=== PATIENT | male | born 1995 | race Caucasian/White ===

== ENCOUNTER 2018-03-10 02:35 | Emergency (ER) | payer BC, OTHER ==
[2018-03-10 02:48] VITALS: BP 143/92; PULSE 109; RESP 18; TEMP 98.5
--- NOTE | 2018-03-10 03:10 | ED ---
Recheck HPI - General Chief Complaint: Recheck/Abnormal Lab/Rx Stated Complaint: mental health Source: patient Mode of arrival: ambulatory Limitations: no limitations - History of Present Illness Initial Comments: 22-year-old male with past medical history of attention deficit disorder presenting today for chief complaint of addiction to adderral. Pt states these previous prescribed Adderall for his attention deficit disorder by his primary provider. Patient states after his transition from pediatric care he had not obtain a primary provider and began buying Adderall off the street. Patient states that he is now taking up to 60 mg a day. He took Adderall today with last dose being at 8pm. States today after coming down from the lateral he felt markedly drained, he states he has not slept for longer than a few hours in the past 3 days. He also states that adderall also makes him agitated. Patient states that he he would like resources to get help for his addiction. Patient denies any alcohol or other drug abuse. Patient denies IV drug use. Patient denies a suicidal homicidal ideation or thoughts. On arrival patient's heart rate elevated. Patient denies any chest pain, shortness of breath, dyspnea on exertion. Pt appears well. Remainder of ROS (-), Patient denies any recent fever, chills, shortness of breath, chest pain, back pain, abdominal pain , nausea or vomiting, numbness or tingling, dysuria or hematuria, constipation or diarrhea, headaches or visual changes, or any other complaints. - Related Data Allergies Allergy/AdvReac Type Severity Reaction Status Date / Time No Known Allergies Allergy Verified 03/10/18 02:48 Review of Systems ROS Statement: Those systems with pertinent positive or pertinent negative responses have been documented in the HPI. ROS Other: All systems not noted in ROS Statement are negative. Constitutional: Denies: fever, chills Eyes: Denies: eye pain ENT: Denies: ear pain, throat pain Respiratory: Denies: cough, dyspnea, wheezes, hemoptysis, stridor Cardiovascular: Denies: chest pain, palpitations, dyspnea on exertion Endocrine: Denies: fatigue Gastrointestinal: Denies: abdominal pain, nausea, vomiting, diarrhea, constipation Genitourinary: Denies: urgency, dysuria, frequency, hematuria Musculoskeletal: Denies: back pain Skin: Denies: rash Neurological: Denies: headache, weakness, numbness, paresthesias, confusion Past Medical History Past Medical History: No Reported History History of Any Multi-Drug Resistant Organisms: MRSA Date of last positivie culture/infection: 2011 MDRO Source:: right knee Past Surgical History: No Surgical Hx Reported Past Psychological History: ADD/ADHD Smoking Status: Current every day smoker Past Alcohol Use History: None Reported Past Drug Use History: None Reported General Exam - General Exam Comments Initial Comments: General: The patient is awake and alert, in no distress, and does not appear acutely ill. Eye: Pupils are equal, round and reactive to light, extra-ocular movements are intact. No nystagmus. There is normal conjunctiva bilaterally. No signs of icterus. Ears, nose, mouth and throat: There are moist mucous membranes and no oral lesions. Neck: The neck is supple, there is no tenderness or JVD. Cardiovascular: There is a elevated rate and normal rhythm. No murmur, rub or gallop is appreciated. Respiratory: Lungs are clear to auscultation, respirations are non-labored, breath sounds are equal. No wheezes, stridor, rales, or rhonchi. Gastrointestinal: Soft, non-distended, non-tender abdomen without masses or organomegaly noted. There is no rebound or guarding present. No CVA tenderness. Bowel sounds are unremarkable. Musculoskeletal: Normal ROM, no tenderness. Strength 5/5. Sensation intact. Pulses equal bilaterally 2+. Neurological: A&O x 3. CN II-XII intact, There are no obvious motor or sensory deficits. Coordination appears grossly intact. Speech is normal. Skin: Skin is warm and dry and no rashes or lesions are noted. Psychiatric: Cooperative, appropriate mood & affect, normal judgment. Limitations: no limitations Course Vital Signs 03/10/18 02:42 Temperature 98.5 F Pulse Rate 109 H Respiratory 18 Rate Blood Pressure 143/92 O2 Sat by Pulse 100 Oximetry Medical Decision Making - Medical Decision Making Patient denies any suicidal or homicidal ideations. Patient states he would like addiction resources and discharge home. At this time feel patient is not a harm to himself or others. Review of systems is negative. Patient HR elevated however this is consistent with taking amphetamine at [address] Pittman at this time we feel patient is stable for discharge with primary care follow-up. Return parameters were discussed at length the patient who verbalized understanding. Patient is agreeable discharge stating he is ready to go home. Patient discharged in stable condition Disposition Clinical Impression: Amphetamine abuse Disposition: HOME SELF-CARE Condition: Good Instructions: Polysubstance Abuse (ED) Additional Instructions: Please follow-up with family doctor in the next 24 hours, please seek one of the recommended rehabilitation facilities as discussed for evaluation and treatment of adderall addiction. Please return to emergency room if the symptoms increase or worsen or for any other concerns, such as chest pain or shortness of breath. Is patient prescribed a controlled substance at d/c from ED?: No Referrals: None,Stated [Primary Care Provider] - 1-2 days Time of Disposition: 03:10
== END 2018-03-10 03:18 | disposition home or self-care (01) ==
LOC: EC 02:35
DX: F15.10 Other stimulant abuse, uncomplicated (principal); F90.9 Attention-deficit hyperactivity disorder, unspecified type; R00.9 Unspecified abnormalities of heart beat; F17.200 Nicotine dependence, unspecified, uncomplicated; Z79.899 Other long term (current) drug therapy
CPT/HCPCS: 99283

== ENCOUNTER 2018-05-01 08:22 | Emergency (ER) | payer BC, OTHER ==
[2018-05-01 08:29] VITALS: BP 157/92; PULSE 120; RESP 18; TEMP 97.7
== END 2018-05-01 08:47 | disposition left against medical advice (07) ==
LOC: EC 08:22
DX: T33.522A Superficial frostbite of left hand, initial encounter (principal)
CPT/HCPCS: 99499

== ENCOUNTER 2018-05-01 10:02 | Emergency (ER) | payer BC, OTHER ==
[2018-05-01 10:07] VITALS: RESP 18; TEMP 97.4
--- NOTE | 2018-05-01 10:33 | ED ---
General Adult HPI - General Chief complaint: Psychiatric Symptoms Stated complaint: EPS eval Time Seen by Provider: 05/01/18 10:22 Source: patient, RN notes reviewed Mode of arrival: ambulatory Limitations: no limitations - History of Present Illness Initial comments: Patient is a pleasant 23-year-old male presenting to the emergency Department with depression. There was question if patient was suicidal however patient denies this. Patient originally answers no to any hallucinations however states there may have been some minor incidences but nothing severe. Patient does not want to expand on this. Patient denies any homicidal thoughts. Patient is concerned regarding some area on his left hand that he thinks could be related to frostbite. Patient states he was exposed to some cold. Patient states this occurred 2 days ago. - Related Data Home Medications Medication Instructions Recorded Confirmed Lisdexamfetamine Dimesylate 40 mg PO DAILY 05/01/18 05/01/18 [Vyvanse] Allergies Allergy/AdvReac Type Severity Reaction Status Date / Time No Known Allergies Allergy Verified 05/01/18 10:07 Review of Systems ROS Statement: Those systems with pertinent positive or pertinent negative responses have been documented in the HPI. ROS Other: All systems not noted in ROS Statement are negative. Constitutional: Denies: fever Eyes: Denies: eye pain ENT: Denies: ear pain Respiratory: Denies: cough Cardiovascular: Denies: chest pain Endocrine: Denies: fatigue Gastrointestinal: Denies: abdominal pain Genitourinary: Denies: dysuria Skin: Reports: as per HPI Neurological: Denies: weakness Psychiatric: Reports: depression Past Medical History Past Medical History: No Reported History History of Any Multi-Drug Resistant Organisms: MRSA Date of last positivie culture/infection: 2011 MDRO Source:: right knee Past Surgical History: No Surgical Hx Reported Past Psychological History: ADD/ADHD Smoking Status: Current every day smoker Past Alcohol Use History: None Reported Past Drug Use History: None Reported General Exam Limitations: no limitations General appearance: alert, in no apparent distress Head exam: Present: atraumatic Eye exam: Present: normal appearance Neck exam: Present: normal inspection Respiratory exam: Present: normal lung sounds bilaterally Cardiovascular Exam: Present: regular rate, normal rhythm GI/Abdominal exam: Present: soft. Absent: tenderness Extremities exam: Present: full ROM. Absent: tenderness Neurological exam: Present: alert Psychiatric exam: Present: anxious Skin exam: Present: other (left palmWith 4-5 small areas of callus-type formation. 3 areas are the palmar MCP and 2 are more proximal, could represent a small amount of rizvi nip or callus. ) Course Vital Signs 05/01/18 10:05 Temperature 97.4 F L Pulse Rate 129 H Respiratory 18 Rate Blood Pressure 153/87 O2 Sat by Pulse 96 Oximetry - Reevaluation(s) Reevaluation #1: 05/01/18 10:33 Patient is advised he will need wound care for the left palm. Medical Decision Making - Medical Decision Making Patient was seen by mental health services. Patient no longer suicidal and does contract for safety. They recommend discharge. - Lab Data Lab Results 05/01/18 Range/Units 10:41 Urine Opiates Screen Not Detected (NotDetected) Ur Oxycodone Screen Not Detected (NotDetected) Urine Methadone Screen Not Detected (NotDetected) Ur Propoxyphene Screen Not Detected (NotDetected) Ur Barbiturates Screen Not Detected (NotDetected) U Tricyclic Antidepress Not Detected (NotDetected) Ur Phencyclidine Scrn Not Detected (NotDetected) Ur Amphetamines Screen Detected H (NotDetected) U Methamphetamines Scrn Not Detected (NotDetected) U Benzodiazepines Scrn Not Detected (NotDetected) Urine Cocaine Screen Not Detected (NotDetected) U Marijuana (THC) Screen Not Detected (NotDetected) Disposition Clinical Impression: Depression Disposition: HOME SELF-CARE Condition: Stable Instructions (If sedation given, give patient instructions): Depression (ED), Polysubstance Abuse (ED) Additional Instructions: Please follow-up with primary care physician in the next day or 2 for recheck. Do not use medications not prescribed to. Return for increased depression, thoughts of self-harm, worsening symptoms or other concerns. Is patient prescribed a controlled substance at d/c from ED?: No Referrals: Claude Freire MD [Primary Care Provider] - 1-2 days Time of Disposition: 13:14
[2018-05-01 11:05] LABS: Amphetamine Screen,Urine Detected (NotDetected); Barbiturate Screen,Urine Not Detected (NotDetected); Benzodiazepines Screen,Urine Not Detected (NotDetected); Cocaine Screen,Urine Not Detected (NotDetected); Methadone Screen, Urine Not Detected (NotDetected); Opiate Screen,Urine Not Detected (NotDetected); Oxycodone Screen, Urine Not Detected (NotDetected); Phencyclidine Screen,Urine Not Detected (NotDetected); Tricyclic Antidepressant,Urine Not Detected (NotDetected); Urn Cannabinoid Scrn Not Detected (NotDetected)
[2018-05-01] MEDS ORDERED: LORazepam 1 MG TAB PO STA (13:24)
[2018-05-01 14:13] VITALS: BP 119/68; PULSE 110
== END 2018-05-01 14:13 | disposition home or self-care (01) ==
LOC: EC 10:02
DX: F32.9 Major depressive disorder, single episode, unspecified (principal); F17.200 Nicotine dependence, unspecified, uncomplicated; Z86.14 Personal history of Methicillin resistant Staphylococcus aureus infection; Z79.899 Other long term (current) drug therapy
CPT/HCPCS: 80306; 99284

== ENCOUNTER 2018-07-04 10:06 | Inpatient (IN) | payer BC, MEDICAID ==
--- NOTE | 2018-07-04 10:47 | ED ---
General Adult HPI - General Chief complaint: Psychiatric Symptoms Stated complaint: Mental Health Time Seen by Provider: 07/04/18 10:18 Source: patient, police, RN notes reviewed, old records reviewed Mode of arrival: ambulatory Limitations: no limitations - History of Present Illness Initial comments: 23 -year-old male presenting for psychiatric evaluation. Patient is petitioned both by local police and by his mother. According to police he has made suicidal comments and has been threatening to harm himself. There was some issues related to face broke. Patient himself denies suicidal ideation at the time my evaluation. He denies any self-harm or ingestion. He has no chronic medical problems. He states that 2 days ago police did take away his medication. - Related Data Home Medications Medication Instructions Recorded Confirmed Lisdexamfetamine Dimesylate 40 mg PO DAILY 05/01/18 07/04/18 [Vyvanse] Allergies Allergy/AdvReac Type Severity Reaction Status Date / Time No Known Allergies Allergy Verified 07/04/18 10:23 Review of Systems ROS Statement: Those systems with pertinent positive or pertinent negative responses have been documented in the HPI. ROS Other: All systems not noted in ROS Statement are negative. Past Medical History Past Medical History: No Reported History History of Any Multi-Drug Resistant Organisms: MRSA Date of last positivie culture/infection: 2011 MDRO Source:: right knee Past Surgical History: No Surgical Hx Reported Past Psychological History: ADD/ADHD Smoking Status: Current every day smoker Past Alcohol Use History: None Reported Past Drug Use History: None Reported General Exam Limitations: no limitations General appearance: alert, in no apparent distress Head exam: Present: atraumatic, normocephalic Eye exam: Present: normal appearance, PERRL ENT exam: Present: normal exam Neck exam: Present: normal inspection. Absent: tenderness, meningismus Respiratory exam: Present: normal lung sounds bilaterally. Absent: respiratory distress, wheezes Cardiovascular Exam: Present: regular rate, normal rhythm GI/Abdominal exam: Present: soft. Absent: distended, tenderness Extremities exam: Present: normal inspection, normal capillary refill Neurological exam: Present: alert, CN II-XII intact. Absent: motor sensory d eficit Psychiatric exam: Present: flat affect. Absent: homicidal ideation, suicidal ideation Skin exam: Present: warm, dry, intact. Absent: cyanosis, diaphoretic Course Vital Signs 07/04/18 07/04/18 07/04/18 10:10 12:22 15:00 Temperature 98 F Pulse Rate 89 Respiratory 20 16 16 Rate Blood Pressure 131/81 O2 Sat by Pulse 97 Oximetry Medical Decision Making - Medical Decision Making 23-year-old male brought in under quite a petition for psychiatric evaluation. Patient is medically cleared in the emergency department. He is evaluated by EPS, will be admitted to this institution for further psychiatric evaluation and treatment. I completed a clinical certification on this patient. - Lab Data Lab Results 07/04/18 Range/Units 11:16 Urine Opiates Screen Not Detected (NotDetected) Ur Oxycodone Screen Not Detected (NotDetected) Urine Methadone Screen Not Detected (NotDetected) Ur Propoxyphene Screen Not Detected (NotDetected) Ur Barbiturates Screen Not Detected (NotDetected) U Tricyclic Antidepress Not Detected (NotDetected) Ur Phencyclidine Scrn Not Detected (NotDetected) Ur Amphetamines Screen Detected H (NotDetected) U Methamphetamines Scrn Not Detected (NotDetected) U Benzodiazepines Scrn Not Detected (NotDetected) Urine Cocaine Screen Not Detected (NotDetected) U Marijuana (THC) Screen Not Detected (NotDetected) Disposition Clinical Impression: Depression, Suicidal ideation Disposition: ADMITTED IP TO THIS [facility] Condition: Stable Is patient prescribed a controlled substance at d/c from ED?: No Referrals: Claude Freire MD [Primary Care Provider] - 1-2 days Time of Disposition: 15:15 Decision to Admit Reason: Admit from EC Decision Date: 07/04/18 Decision Time: 15:15
[2018-07-04 11:30] LABS: Amphetamine Screen,Urine Detected (NotDetected); Barbiturate Screen,Urine Not Detected (NotDetected); Benzodiazepines Screen,Urine Not Detected (NotDetected); Cocaine Screen,Urine Not Detected (NotDetected); Methadone Screen, Urine Not Detected (NotDetected); Opiate Screen,Urine Not Detected (NotDetected); Oxycodone Screen, Urine Not Detected (NotDetected); Phencyclidine Screen,Urine Not Detected (NotDetected); Tricyclic Antidepressant,Urine Not Detected (NotDetected); Urn Cannabinoid Scrn Not Detected (NotDetected)
[2018-07-04] MEDS ORDERED: NICOTINE 21MG/24HR PATCH TRANSDERM STA (15:11)
[2018-07-04] MEDS ORDERED: MAG HYDROX/AL HYDROX/SIMETH 30 ML CUP PO PRN (20:56)
[2018-07-04] MEDS ORDERED: ACETAMINOPHEN TAB 325 MG TAB PO PRN (20:56)
[2018-07-04] MEDS ORDERED: MAGNESIUM HYDROXIDE 2,400 MG/10 ML CUP PO PRN (20:56)
[2018-07-04] MEDS ORDERED: LORazepam 1 MG TAB PO SCH (21:00)
[2018-07-05] MEDS: NICOTINE 21MG/24HR PATCH TRANSDERM SCH (10:11)
--- NOTE | 2018-07-05 10:17 | HP ---
HISTORY AND PHYSICAL DATE OF SERVICE DICTATION: 07/05/2018 IDENTIFYING DATA: This patient is a 23-year-old single male who was admitted to the mental health unit with concerns he was having suicidal ideation. HISTORY OF PRESENT ILLNESS: The patient presented with a petition completed by his grandmother stating "He would be better off ." He hurt his family. He is no good. We would be better off without him. He thinks everyone thinks he is a bad person, made too many mistakes in life." The patient states that he is here on a misunderstanding. He reports the prior day he had a meltdown. He was in [place] and had a flat tire and was struggling with getting that repaired. He had made a call to his mother and had vented his frustration. After his tire was repaired, he tried to go back home. Apparently, his mother changed the locks. He went to his grandmother's home. He states that the police picked him up in the morning and brought him to the hospital for evaluation. He indicates his mood is good. He reports his sleep is stable at 8 hours. Appetite is stable. Energy level stable. He endorses no tearfulness or crying spells. Throughout the session, he was trying to minimize the presenting symptoms. He indicates that he has been taking a stimulant for years for ADHD that was diagnosed at age 14 and he has been off of his Vyvanse for approximately 5 days. However, it was still in his urine drug screen. In reviewing the emergency room record, he has been in the ER twice before and in this past March he presented stating he had an Adderall addiction and wanted help in terms of coming off of Adderall. He presented again at the end of this past April stating he had depression but not suicidal and he was not admitted. We reviewed these episodes and again he minimizes their importance. He reports no significant anxiety symptoms. He does state that he is stressed. However, he feels that he has to provide too much support for his mother, grandmother, girlfriend and brother. He reports no history of hypomanic or manic episodes. He reports no auditory or visual hallucinations or any specific delusions. He states there are no firearms at home, where he resides. PAST PSYCHIATRIC HISTORY: One prior psychiatric admission 6 years ago at [facility]. No history of suicide attempts. He did work with a gentleman named Stevenson at [employer] approximately 1-2 months ago, but he discontinued that activity. He did state that was beneficial. He has been on Adderall that he bought off the street in the past and was prescribed Vyvanse 40 mg by his primary care physician. PAST MEDICAL HISTORY: None reported. ALLERGIES: No known drug allergies. CHEMICAL DEPENDENCY HISTORY: He reports no use of alcohol, marijuana, or illicit drugs. He has never been placed in residential treatment for chemical dependency reasons. FAMILY PSYCHIATRIC HISTORY: His mother is known to have depression. He is unaware if she is on a medication. There are no suicides in the family. FAMILY CHEMICAL DEPENDENCY HISTORY: His mother is known to abuse alcohol. SOCIAL HISTORY: The patient is 23 years old. He is single. He has no children. He resides with his mother and grandmother. He has a brother. He is self-employed as a maintenance specialist. He graduated high school and went to the [employer] locally for short period time with no degree earned. No history of service. He is originally from the [facility]. He was primarily raised by his mother. His father was not in his life. LEGAL HISTORY: He states he was charged with firearms possession and controlled substance possession as a deportation examiner. He served the day treatment night watch sentence successfully. He reports no legal charges as an adult. ABUSE HISTORY: None reported. MENTAL STATUS EXAM: The patient is a thin male, appearing his stated age. He wears a garcia. He is dressed in his own clothing. Hygiene is adequate. He has a disheveled appearance. He yawns throughout the session, indicating he is tired. He reports his mood is good. He has a constricted affect. He reports no suicidal or homicidal ideation, intent, or plan. He reports no auditory or visual hallucinations or any specific delusions. There is no observed evidence of psychosis. Thought process is linear. He demonstrates no tangential thinking, loose associations or flight of ideas. He does not appear hypomanic or manic. He demonstrates no verbal or physical aggressiveness. No involuntary repetitive movements. Insight and judgment grossly intact at this time. He is oriented to person, place, and date. He is able to name the days of the week backwards. STRENGTHS: Housing, willingness to be evaluated voluntarily. WEAKNESSES: Psychosocial stressors, unemployment. INTELLECT: Average. IMPRESSION: Depression, unspecified, rule out major depressive disorder, rule out stimulant use disorder. PLAN: The patient has been admitted to the mental health unit. He is asking to sign in voluntarily. He endorses no symptoms meeting criteria for major depressive disorder and anxiety disorder,. etc. He does; however, continue to present to the hospital for help. We discussed the need to evaluate him further. He is instructed to attend groups. He indicates that his grandmother and girlfriend would be the best people to participate in his support meeting and Social Work can arrange this. We will not continue the Vyvanse. He states that it is not necessary, he no longer wants to take it. He does not feel that he needs to participate in inpatient chemical dependency treatment. He will be seen by Internal Medicine for routine history and physical exam. We will involve family in treatment and discharge planning as he will allow. At this time, he has indicated he does not need a psychotropic medication. We will not force the issue. We will continue to assess him for safety. MMODL / IJN: [id number] /
[2018-07-05 11:15] LABS: Basophils # (A) 0.1 k/uL (0-0.2); Basophils % (A) 1 %; Eosinophils # (A) 0.2 k/uL (0-0.7); Eosinophils % (A) 2 %; HCT 49.5 % (39.0-53.0); HGB 17.3 gm/dL (13.0-17.5); Lymphocytes # (A) 1.8 k/uL (1.0-4.8); Lymphocytes % (A) 28 %; MCH 31.6 pg (25.0-35.0); MCHC 34.9 g/dL (31.0-37.0); MCV 90.7 fL (80.0-100.0); Mean Platelet Volume 8.5; Monocytes # (A) 0.4 k/uL (0-1.0); Monocytes % (A) 7 %; Neutrophils # (A) 3.8 k/uL (1.3-7.7); Neutrophils % (A) 60 %; Platelet Count 205 k/uL (150-450); RBC 5.46 m/uL (4.30-5.90); RDW 14.2 % (11.5-15.5); WBC 6.3 k/uL (3.8-10.6)
[2018-07-05 11:30] LABS: ALT 20 U/L (21-72); AST 22 U/L (17-59); Albumin 4.5 g/dL (3.5-5.0); Alkaline Phosphatase 65 U/L (38-126); Anion Gap 8 mmol/L; Blood Urea Nitrogen 17 mg/dL (9-20); Carbon Dioxide 33 mmol/L (22-30); Chloride 101 mmol/L (98-107); Cholesterol 181 mg/dL (<200); Glucose 71 mg/dL (74-99); HDL Cholesterol 37 mg/dL (40-60); LDL Cholesterol,Calculated 83 mg/dL (0-99); Potassium 4.6 mmol/L (3.5-5.1); Sodium 142 mmol/L (137-145); Total Bilirubin 0.6 mg/dL (0.2-1.3); Total Protein 7.4 g/dL (6.3-8.2); Triglycerides 307 mg/dL (<150)
[2018-07-05 11:55] VITALS: BMI 25.8
[2018-07-05 21:22] LABS: Hemoglobin A1C 5.5 % (4.0-6.0)
[2018-07-05] MEDS: LORazepam 1 MG TAB PO PRN (21:30)
--- NOTE | 2018-07-05 21:32 | P.MDCNMH ---
History of Present Illness H&P Date: 07/05/18 Chief Complaint: Suicidal comments. Petitioned by his mother Patient is a 23-year-old male with a known history of ADD/ADHD, nicotine addiction brought to the hospital for psychiatric evaluation. Petitioned is petitioned by his mother and was brought to the hospital by police. Aberrantly patient has made suicidal comments and has been threatening to harm himself. Patient says that there is some misunderstanding between his mother and him. Currently denied any suicidal ideation. Denied any recent illnesses. Denied history of any other medical problems. Patient has not been taking any of his medications recently for the past 2-3 days. No chest pain or shortness breath. No fever no chills. Review of Systems Constitutional: Patient denies any fever or chills . No generalized weakness or weight loss. Abdomen: Patient denied nausea vomiting and diarrhea and abdominal pain. Cardiovascular: Patient denies any chest pain or short of breath no palpitations. Respiratory: patient denied any cough is from production. No shortness of breath Neurologic: Patient denied any numbness or tingling headache. Musculoskeletal: Patient denies any complaints of joint swelling or deformity. Skin: Negative Psychiatric: Negative Endocrine: No heat or cold intolerance. No recent weight gain. Genitourinary: No dysuria or hematuria. All other 14 point ROS negative except the above Past Medical History Past Medical History: No Reported History History of Any Multi-Drug Resistant Organisms: MRSA Date of last positivie culture/infection: 2011 MDRO Source:: right knee Past Surgical History: No Surgical Hx Reported Past Psychological History: ADD/ADHD Smoking Status: Current every day smoker Past Alcohol Use History: None Reported Past Drug Use History: None Reported Medications and Allergies Home Medications Medication Instructions Recorded Confirmed Type Lisdexamfetamine Dimesylate 40 mg PO DAILY 05/01/18 07/04/18 History [Sheela] Allergies Allergy/AdvReac Type Severity Reaction Status Date / Time No Known Allergies Allergy Verified 07/05/18 11:56 Physical Exam Vitals: Vital Signs Temp Pulse Resp BP 07/05/18 12:24 114 H 20 123/66 07/05/18 05:52 97.7 F 124 H 16 126/75 PHYSICAL EXAMINATION: Patient is lying in the bed comfortably, no acute distress, awake alert and oriented.. HEENT: Normocephalic. Neck is supple. Pupils reactive. Nostrils clear. Oral cavity is moist. Ears reveal no drainage. Neck reveals no JVD, carotid bruits, or thyromegaly. CHEST EXAMINATION: Trachea is central. Symmetrical expansion. Lung faulkner clear to auscultation and percussion. CARDIAC: Normal S1, S2 with no gallops. No murmurs ABDOMEN: Soft. Bowel sounds normal. No organomegaly. No abdominal bruits. Extremities: reveal no edema. No clubbing or cyanosis Neurologically awake, alert, oriented x3 with well-coordinated movements. No focal deficits noted Skin: No rash or skin lesions. Psychiatric: Coperative. Nonsuicidal Musculoskeletal: No joint swelling or deformity. Normal range of motion. Cranial Nerve Examination - Cranial Nerves Cranial Nerve I- Olfactory: Intact Cranial Nerve II- Optic: Intact Cranial Nerve III- Oculomotor: Intact Cranial Nerve IV- Trochlear: Intact Cranial Nerve V- Trigeminal: Intact Cranial Nerve - Abducens: Intact Cranial Nerve VII- Facial: Intact Cranial Nerve VIII- Auditory: Intact Cranial Nerve IX- Glossopharyngeal: Intact Cranial Nerve X- Vagus: Intact Cranial Nerve XI- Accessory: Intact Cranial Nerve XII- Hypoglossal: Intact Results CBC & Chem 7: 07/05/18 10:58 07/05/18 10:58 Labs: Abnormal Lab Results - Last 24 Hours (Table) 07/05/18 Range/Units 10:58 Carbon Dioxide 33 H (22-30) mmol/L Glucose 71 L (74-99) mg/dL ALT 20 L (21-72) U/L Triglycerides 307 H (<150) mg/dL HDL Cholesterol 37 L (40-60) mg/dL Assessment and Plan Assessment: Suicidal ideation/comments. petitioned by his mother. ADD/ADHD Nicotine addiction Hypertriglyceridemia with TG level 307 Plan: Patient be continued on current psychiatric management. Dietary modifications discussed with the patient. Counseled for smoking cessation. Otherwise continue the current management and further recommendations based on the clinical course. Thank you for your consult. Time with Patient: Greater than 30
[2018-07-05 21:33] VITALS: RESP 16
[2018-07-06] MEDS: NICOTINE 21MG/24HR PATCH TRANSDERM SCH (10:24)
--- NOTE | 2018-07-06 11:37 | P.PN ---
Progress Note - Text Interval history: The patient is found in the hallway he follows me to an interview room. He indicates his mood is good. He reports he participated in a support meeting involving his girlfriend and that went well. I have to touch base with social work to get their impression. He states he has no suicidal thoughts. He is not feeling sad no particular anxiety. He states he's been eating well he was able to sleep last night. He has been attending groups. Mental status exam: The patient is alert he presents with adequate hygiene grooming eye contact is appropriate. He is dressed in his own clothing. He seated calmly. He reports having no suicidal or homicidal ideation intent or plan. He is reporting no auditory or visual hallucinations or any specific delusions. There is no observed evidence of psychosis. He demonstrates no tangential thinking loose associations or flight of ideas. He does not appear hypomanic or manic. He demonstrates no verbal or physical aggressiveness. Affect is bright and appropriately expressive. Insight and judgment grossly intact. Plan: The patient will be monitored for safety. I will confer with social work regarding the recent family meeting. We will need to confirm that he can reside with his grandmother. He does not feel he needs a medication for depressive or anxiety symptoms. He is willing to follow up with his therapist as an outpatient. We will consider discharging him tomorrow if clinically stable. Vital signs reviewed.
[2018-07-06] MEDS: LORazepam 1 MG TAB PO PRN (21:41)
[2018-07-07 00:06] VITALS: BP 131/63; PULSE 96; TEMP 97.7
--- NOTE | 2018-07-07 09:59 | P.DS ---
Providers Date of admission: 07/04/18 15:23 Expected date of discharge: 07/07/18 Attending physician: Octavio Degroot Consults: 07/04/18 20:56 Consult Physician Routine Consulting Provider: Camilo Florian Consult Reason/Comments: medical management Do you want consulting provider notified?: Yes, Notify in am Primary care physician: Claude Freire - Discharge Diagnosis(es) (1) Depression Current Visit: Yes Status: Acute Hospital Course: Brief summary admission note: This patient is a 23-year-old single male was admitted to the mental health unit with concerns she was having suicidal ideation. The patient was petition by his grandmother. The patient made some statements to his family that were concerning upon presentation here he states there was a misunderstanding. He reported having a meltdown the previous day he states that social stressors had been accumulating over the last 6 months and were overwhelming. At the time I saw him reported his mood was good he didn't feel that he met criteria for depressive episodes he had no suicidal thoughts he reported stressors but not any true anxiety disorder. He had been treated for ADHD in the past. He had been using Vyvanse regularly up until just prior to this admission. For full details please refer to the psychiatric evaluation dated 07/05/2018. Summary of hospital course: The patient was admitted to the mental health unit voluntarily. We reviewed his presenting symptoms and treatment options. He was seen by internal medicine for routine history and physical exam social media community manager met with the patient to complete a psychosocial assessment and begin discharge planning. After speaking with him he did not meet criteria for major depressive disorder but seemed to be reacting to stressors in his life. 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 During the course of his stay he reported no suicidal thoughts he did participate in a support meeting involving his girlfriend his grandmother visited last evening. He plans to reside with his grandmother and we'll allow social work to speak with her. Mental status exam: The patient is alert he is dressed in hospital gowns he has adequate hygiene grooming eye contact is appropriate. He is pleasant and cooperative. He has spontaneous speech that is fluent nonpressured. He reports no suicidal ideation intent or plan and no homicidal ideation intent or plan. He reports he does not feel hopeless. He endorses no auditory or visual hallucinations or any specific delusions. There is no observed evidence of psychosis. He demonstrates no tangential thinking loose associations or flight of ideas. He does not appear hypomanic or manic. He demonstrates no verbal or physical aggressiveness. He is oriented to person place and date. He spontaneously describes future oriented thinking. Impressions 1. Depression unspecified rule out stimulant use disorder Plan: The patient will be discharged mental health unit today he will reside with his grandmother. He will continue following up with his established therapist social work will confirm his next appointment. He did not require any psychotropic medication at this time he plans on abstaining from the Vyvanse and any other stimulant. There is no imminent safety risk he is appropriate for transition back to outpatient care. He is instructed to present to the hospital any acute safety concerns. We spent some time discussing suggestions for cognitive reframing for setting limits and developing coping skills Patient Condition at Discharge: Stable Plan - Discharge Summary Discharge Rx Participant: No New Discharge Prescriptions: New Nicotine 21Mg/24Hr Patch [Habitrol] 1 patch TRANSDERM DAILY #14 patch Discontinued Lisdexamfetamine Dimesylate [Vyvanse] 40 mg PO DAILY Discharge Medication List Nicotine 21Mg/24Hr Patch [Habitrol] 1 patch TRANSDERM DAILY #14 patch 07/07/18 [Rx] Follow up Appointment(s)/Referral(s): Eri Khan [Outside] - 1 Week ([place] ) Claude Freire MD [Primary Care Provider] - 1-2 days
[2018-07-07] MEDS: NICOTINE 21MG/24HR PATCH TRANSDERM SCH (10:10)
== END 2018-07-07 13:11 | disposition home or self-care (01) | DRG 881 ==
LOC: EC 10:06 → 3MHU 15:23
PROVIDERS: ADMIT Psychiatry & Neurology Psychiatry; ATTEND Psychiatry & Neurology Psychiatry
DX: F32.9 Major depressive disorder, single episode, unspecified (principal); R45.851 Suicidal ideations; F90.9 Attention-deficit hyperactivity disorder, unspecified type; E78.1 Pure hyperglyceridemia; F17.210 Nicotine dependence, cigarettes, uncomplicated; Z71.6 Tobacco abuse counseling; Z79.899 Other long term (current) drug therapy; Z71.3 Dietary counseling and surveillance; Z56.0 Unemployment, unspecified; Z86.14 Personal history of Methicillin resistant Staphylococcus aureus infection; Z81.8 Family history of other mental and behavioral disorders
CPT/HCPCS: 80053; 80061; 80306; 83036; 84443; 85025; 99285

== ENCOUNTER 2019-02-03 15:57 | Emergency (ER) | payer OTHER, BC ==
[2019-02-03 16:34] VITALS: TEMP 98
--- NOTE | 2019-02-03 17:29 | XR ---
EXAMINATION TYPE: XR chest 2V DATE OF EXAM: 02/03/2019 COMPARISON: NONE HISTORY: Pain TECHNIQUE: Frontal and lateral views of the chest are obtained. FINDINGS: Heart and mediastinum are normal. Lungs are clear. Diaphragm is normal. Bony thorax appear s normal. IMPRESSION: Normal chest.
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
[2019-02-03 17:58] VITALS: BP 136/82; PULSE 80; RESP 16
== END 2019-02-03 17:53 | disposition home or self-care (01) ==
LOC: EC 15:57
DX: R51 Headache (principal); F17.200 Nicotine dependence, unspecified, uncomplicated; Z86.14 Personal history of Methicillin resistant Staphylococcus aureus infection; V48.5XXA Car driver injured in noncollision transport accident in traffic accident, initial encounter; Y93.89 Activity, other specified; Y92.410 Unspecified street and highway as the place of occurrence of the external cause
CPT/HCPCS: 70450; 71046; 72125; 99284

== ENCOUNTER 2019-08-12 03:42 | Emergency (ER) | payer BC, OTHER ==
[2019-08-12 03:49] VITALS: RESP 18
--- NOTE | 2019-08-12 04:33 | XR ---
EXAMINATION TYPE: XR hand complete LT DATE OF EXAM: 08/12/2019 COMPARISON: NONE HISTORY: Pain TECHNIQUE: 3 views FINDINGS: Metacarpals are intact. There is nondisplaced fracture of the tip of the tuft of the distal phalanx of the thumb. There is deformity of the base of the distal phalanx of the middle finger cons istent with old healed fracture. IMPRESSION: Acute nondisplaced tuft fracture of the thumb.
[2019-08-12] MEDS ORDERED: HYDROcodone/APAP 5-325MG 1 EACH TAB PO STA (04:44)
[2019-08-12] MEDS ORDERED: CEPHALEXIN 500MG STARTER PACK 4 CAP BTL PO STA (04:44)
--- NOTE | 2019-08-12 04:44 | ED ---
Upper Extremity HPI - General Chief Complaint: Extremity Injury, Upper Stated Complaint: Thumb Injury Source: patient Mode of arrival: ambulatory Limitations: physical limitation - History of Present Illness Initial Comments: This patient is a 22-year-old man presenting for left thumb injury. He states that approximately 2 days ago now he was moving a heavy speaker and his thumb took a direct blow between the speaker and the hard edge of a piece of furniture. Since that time he has had pain and swelling to the distal phalanx of the left thumb. No obvious deformity. No loss of motor or sensory function. Tetanus shot 6-7 years ago. He did have a small laceration to the pad of the left thumb but denies any symptoms of infection. Complaint: Injury to:: left, finger Onset/Timin -: days(s) Other Extremity Injury: Fingers: Left Other Injuries: none Handedness: right Place: home Severity scale (1-10): 8 Improves With: none Worsens With: movement of extremity Context: direct blow Associated Symptoms: denies other symptoms - Related Data Previous Rx's Medication Instructions Recorded Nicotine 21Mg/24Hr Patch [Habitrol] 1 patch TRANSDERM DAILY #14 patch 07/07/18 Cephalexin [Keflex] 500 mg PO Q6HR #28 cap 08/12/19 Hydrocodone/Acetaminophen [Snyder 1 each PO Q6HR PRN #20 tab 08/12/19 5-325] Allergies Allergy/AdvReac Type Severity Reaction Status Date / Time No Known Allergies Allergy Verified 08/12/19 03:49 Review of Systems ROS Statement: Those systems with pertinent positive or pertinent negative responses have been documented in the HPI. ROS Other: All systems not noted in ROS Statement are negative. Constitutional: Denies: fever, chills Musculoskeletal: Reports: arthralgia Hematological/Lymphatic: Denies: easy bleeding Past Medical History Past Medical History: No Reported History History of Any Multi-Drug Resistant Organisms: MRSA Date of last positivie culture/infection: 2011 MDRO Source:: right knee Past Surgical History: No Surgical Hx Reported Past Psychological History: ADD/ADHD Smoking Status: Current every day smoker Past Alcohol Use History: None Reported Past Drug Use History: None Reported General Exam Limitations: physical limitation General appearance: alert, in no apparent distress Left Forearm Wrist exam: Present: normal inspection, full ROM. Absent: tenderness, swelling Hand Wrist exam: Present: full ROM, tenderness, swelling, laceration, ecchymosis, subungual hematoma. Absent: abrasion, deformity, crepitus, dislocation, erythema, amputation, nail avulsion Vascular: Present: normal capillary refill Neurological exam: Absent: motor sensory deficit Skin exam: Present: warm, dry, intact, normal color. Absent: rash Course Vital Signs 08/12/19 03:46 Temperature 98.1 F Pulse Rate 118 H Respiratory 18 Rate Blood Pressure 136/94 O2 Sat by Pulse 100 Oximetry Medical Decision Making - Medical Decision Making Patient is 24-year-old man with nondisplaced tuft fracture as well as subungual hematoma of the left thumb. Patient will be given antibiotic and analgesic as well as follow-up with orthopedics. Also discussed further care of tuft fracture. Patient tetanus shot up-to-date. Disposition Clinical Impression: Fracture of phalanx of finger, Subungual hematoma of finger of left hand Narrative: Initial visit for a nondisplaced tuft fracture of the left first digit area Disposition: HOME SELF-CARE Condition: Good Instructions (If sedation given, give patient instructions): Finger Fracture (ED) Prescriptions: Cephalexin [Keflex] 500 mg PO Q6HR #28 cap Hydrocodone/Acetaminophen [Snyder 5-325] 1 each PO Q6HR PRN #20 tab PRN Reason: Pain Is patient prescribed a controlled substance at d/c from ED?: Yes When asked, does pt state using other controlled substances?: No If prescribed controlled substance>3 days was MAPS reviewed?: Prescribed <3 Days If opioid is for acute pain is fill amount 7 days or less?: Yes If Rx opioid, was Start Talking consent form obtained?: Yes Referrals: Melo Maria MD [Primary Care Provider] - 1-2 days Gilmer Lowry MD [STAFF PHYSICIAN] - 1-2 days
[2019-08-12 04:58] VITALS: BP 136/90; PULSE 112; TEMP 98
== END 2019-08-12 04:57 | disposition home or self-care (01) ==
LOC: EC 03:42
DX: S62.525A Nondisplaced fracture of distal phalanx of left thumb, initial encounter for closed fracture (principal); S60.112A Contusion of left thumb with damage to nail, initial encounter; F17.200 Nicotine dependence, unspecified, uncomplicated; W22.03XA Walked into furniture, initial encounter
CPT/HCPCS: 99283

== ENCOUNTER 2020-02-25 22:30 | Emergency (ER) | payer BC, OTHER ==
[2020-02-25] MEDS ORDERED: LORazepam 1 MG TAB PO STA (23:08)
[2020-02-26 00:25] LABS: Amphetamine Screen,Urine Detected (NotDetected); Barbiturate Screen,Urine Not Detected (NotDetected); Benzodiazepines Screen,Urine Not Detected (NotDetected); Cocaine Screen,Urine Not Detected (NotDetected); Methadone Screen, Urine Not Detected (NotDetected); Opiate Screen,Urine Not Detected (NotDetected); Oxycodone Screen, Urine Not Detected (NotDetected); Phencyclidine Screen,Urine Not Detected (NotDetected); Tricyclic Antidepressant,Urine Not Detected (NotDetected); Urn Cannabinoid Scrn Not Detected (NotDetected)
--- NOTE | 2020-02-26 02:48 | ED ---
General Adult HPI - General Source: patient, EMS, RN notes reviewed, old records reviewed Mode of arrival: EMS Limitations: no limitations <Gilmer Rivera - Last Filed: 02/26/20 02:48> <Esa Pratt - Last Filed: 02/26/20 12:32> - General Chief complaint: Psychiatric Symptoms Stated complaint: mental health Time Seen by Provider: 02/25/20 22:41 - History of Present Illness Initial comments: 24-year-old male patient to ED for psychiatric evaluation. Patient reports that he has been having difficulty sleeping. He reports that he has taken Adderall late at night and this taking difficult from his sleep. He also reports that he is very anxious. He denies any suicidal or homicidal ideations. However he is requesting a psychiatric evaluation. Denies any physical complaints. Systemic: Pt denies fatigue, fever/chills, rash. Pt denies weakness, night sweats, weight loss. Neuro: Pt denies headache, visual disturbances, syncope or pre-syncope. HEENT: Pt denies ocular discharge or irritation, otalgia, rhinorrhea, pharyngitis or notable lymphadenopathy. Cardiopulmonary: Pt denies chest pain, SOB, heart palpitations, dyspnea on exertion. Abdominal/GI: Pt denies abdominal pain, n/v/d. : Pt denies dysuria, burning w/ urination, frequency/urgency. Denies new onset urinary or bowel incontinence. MSK: Pt denies myalgia, loss of strength or function in extremities. Neuro: Pt denies new onset weakness, paresthesias. (Gilmer Rivera) - Related Data Home Medications Medication Instructions Recorded Confirmed Dextroamphetamine/Amphetamine 20 mg PO BID 02/26/20 02/26/20 [Adderall] Fish Oil/Dha/Epa [Fish Oil 1,200 1 cap PO DAILY 02/26/20 02/26/20 mg Fish Oil] Magnesium Oxide [Magox 400] 400 mg PO DAILY 02/26/20 02/26/20 Multivitamins, Thera [Multivitamin 1 tab PO DAILY 02/26/20 02/26/20 (formulary)] Allergies Allergy/AdvReac Type Severity Reaction Status Date / Time No Known Allergies Allergy Verified 02/26/20 07:47 Review of Systems ROS Other: All systems not noted in ROS Statement are negative. <Gilmer Rivera - Last Filed: 02/26/20 02:48> ROS Other: All systems not noted in ROS Statement are negative. <Esa Pratt - Last Filed: 02/26/20 12:32> ROS Statement: Those systems with pertinent positive or pertinent negative responses have been documented in the HPI. Past Medical History Past Medical History: No Reported History History of Any Multi-Drug Resistant Organisms: MRSA Date of last positivie culture/infection: 2011 MDRO Source:: right knee Past Surgical History: No Surgical Hx Reported Past Psychological History: ADD/ADHD Smoking Status: Current every day smoker Past Alcohol Use History: None Reported Past Drug Use History: None Reported <Gilmer Rivera - Last Filed: 02/26/20 02:48> General Exam Limitations: no limitations <Gilmer Rivera - Last Filed: 02/26/20 02:48> - General Exam Comments Initial Comments: Constitutional: NAD, AOX3, Pt has pleasant affect. HEENT: NC/AT, trachea midline, neck supple, no lymphadenopathy. External ears appear normal, without discharge. Mucous membranes moist. Eyes PERRLA, EOM int act. There is no scleral icterus. No pallor noted. Cardiopulmonary: RRR, no murmurs, rubs or gallops, no JVD noted. Lungs CTAB in anterior and posterior [place]. No peripheral edema. Abdominal exam: Abdomen soft and non-distended. Neuro: CN II-XII grossly intact. No nuchal rigidity. MSK: Full active ROM in upper and lower extremities. (Gilmer Rivera) Course <Esa Pratt - Last Filed: 02/26/20 12:32> Vital Signs 02/25/20 02/26/20 02/26/20 22:48 02:30 06:40 Temperature 98.0 F 97.7 F 98.2 F Pulse Rate 110 H 98 92 Respiratory 18 16 18 Rate Blood Pressure 136/82 147/67 132/77 O2 Sat by Pulse 98 97 Oximetry - Reevaluation(s) Reevaluation #1: 02/26/20 12:31 The patient is resting comfortably throughout the morning in the emergency department he was evaluated by the EPS service on not be a risk to himself or an yone else he will be discharged with outpatient follow-up (Esa Pratt) Medical Decision Making <Gilmer Rivera - Last Filed: 02/26/20 02:48> - Medical Decision Making 24-year-old female patient ED for psychiatric evaluation. No physical complaints. Patient cleared for psych signed out to Dr. Romero pending EPS evaluation. (Gilmer Rivera) - Lab Data Lab Results 02/25/20 02/26/20 Range/Units 23:15 11:40 Urine Opiates Screen Not Detected (NotDetected) Ur Oxycodone Screen Not Detected (NotDetected) Urine Methadone Screen Not Detected (NotDetected) Ur Propoxyphene Screen Not Detected (NotDetected) Ur Barbiturates Screen Not Detected (NotDetected) U Tricyclic Antidepress Not Detected (NotDetected) Ur Phencyclidine Scrn Not Detected (NotDetected) Ur Amphetamines Screen Detected H (NotDetected) U Methamphetamines Scrn Not Detected (NotDetected) U Benzodiazepines Scrn Not Detected (NotDetected) Urine Cocaine Screen Not Detected (NotDetected) U Marijuana (THC) Screen Not Detected (NotDetected) Coronavirus (PCR) Not Detected (Not Detectd) Disposition <Gilmer Rivera - Last Filed: 02/26/20 02:48> Is patient prescribed a controlled substance at d/c from ED?: No <Esa Pratt - Last Filed: 02/26/20 12:32> Clinical Impression: Acute anxiety Disposition: HOME SELF-CARE Condition: Good Instructions (If sedation given, give patient instructions): Anxiety (ED) Referrals: Melo Maria MD [Primary Care Provider] - 1-2 days
[2020-02-26 06:45] VITALS: RESP 18
[2020-02-26 12:42] VITALS: BP 131/72; PULSE 91; TEMP 97.7
== END 2020-02-26 12:41 | disposition home or self-care (01) ==
LOC: EC 22:30
DX: F41.9 Anxiety disorder, unspecified (principal); F90.9 Attention-deficit hyperactivity disorder, unspecified type; F17.200 Nicotine dependence, unspecified, uncomplicated; Z20.828 Contact with and (suspected) exposure to other viral communicable diseases; Z79.899 Other long term (current) drug therapy
CPT/HCPCS: 80306; 82075; 87635; 99284

== ENCOUNTER 2022-04-10 14:48 | Inpatient (IN) | payer BC, MEDICAID ==
[2022-04-10 16:27] LABS: Amphetamine Screen,Urine Not Detected (NotDetected); Barbiturate Screen,Urine Not Detected (NotDetected); Benzodiazepines Screen,Urine Not Detected (NotDetected); Cocaine Screen,Urine Not Detected (NotDetected); Methadone Screen, Urine Not Detected (NotDetected); Opiate Screen,Urine Not Detected (NotDetected); Oxycodone Screen, Urine Not Detected (NotDetected); Phencyclidine Screen,Urine Not Detected (NotDetected); Tricyclic Antidepressant,Urine Not Detected (NotDetected); Urn Cannabinoid Scrn Not Detected (NotDetected)
[2022-04-10] MEDS ORDERED: LORazepam 1 MG TAB PO STA (19:46)
--- NOTE | 2022-04-10 20:10 | ED ---
Psych HPI - General Chief Complaint: Psychiatric Symptoms Stated Complaint: EPS eval Time Seen by Provider: 04/10/22 15:04 Source: patient Mode of arrival: EMS - History of Present Illness Initial Comments: This 27-year-old male presents with a complaint of paranoia. He apparently has had this for the past several weeks. He apparently thinks that his neighbors are evil people, from the [facility], and want to kill him. These thoughts are fairly severe and seemed to be overwhelming. He denies any auditory or visual hallucinations to myself but mother does relate that he has been having some auditory hallucinations. He denies any anxiety or depression but does appear to be anxious. He denies any chronic medical problems. He states that he does not take any medications normally. He denies any drug or alcohol or tobacco use. He is very apprehensive to give a history as he appears very paranoid. He denies ever being admitted to a psychiatric facility in the past or taking psychiatric medications. Mother is present and does give additional history. No other complaints or modifying factors. The patient apparently lives with his grandmother. - Related Data Home Medications Medication Instructions Recorded Confirmed Dextroamphetamine/Amphetamine 20 mg PO BID 02/26/20 02/26/20 [Adderall] Fish Oil/Dha/Epa [Fish Oil 1,200 1 cap PO DAILY 02/26/20 02/26/20 mg Fish Oil] Magnesium Oxide [Magox 400] 400 mg PO DAILY 02/26/20 02/26/20 Multivitamins, Thera [Multivitamin 1 tab PO DAILY 02/26/20 02/26/20 (formulary)] Allergies Allergy/AdvReac Type Severity Reaction Status Date / Time No Known Allergies Allergy Verified 02/26/20 07:47 Review of Systems ROS Statement: Those systems with pertinent positive or pertinent negative responses have been documented in the HPI. ROS Other: All systems not noted in ROS Statement are negative. Past Medical History Past Medical History: No Reported History History of Any Multi-Drug Resistant Organisms: MRSA Date of last positivie culture/infection: 2011 MDRO Source:: right knee Past Surgical History: No Surgical Hx Reported Past Psychological History: ADD/ADHD Smoking Status: Current every day smoker Past Alcohol Use History: None Reported Past Drug Use History: None Reported General Exam - General Exam Comments Initial Comments: GENERAL: The patient is well nourished and well hydrated. VITAL SIGNS: Heart rate, blood pressure, respiratory rate reviewed as recorded in nurse's notes. EYES: Pupils are round and reactive. Extraocular movements are intact. No conjunctival / lid redness or swelling. ENT: No external evidence of injury, swelling, or ecchymosis. Airway is patent. Throat is clear. NECK: Nontender. No swelling or evidence of injury. No subcutaneous emphysema. Trachea is midline. No thyroid mass. HEART: Regular rate and rhythm. Good peripheral pulses. LUNGS/CHEST: Breath sounds clear and equal bilaterally. No rales, rhonchi, or wheezes. No ecchymosis, subcutaneous emphysema, or tenderness. ABDOMEN: Abdomen soft without tenderness. No palpable masses or organomegaly. No peritoneal signs. No abdominal wall swelling or ecchymosis. EXTREMITIES: No extremity tenderness. Normal muscle tone and function. No thoracolumbar tenderness. NEUROLOGIC: Sensation is grossly intact. Cranial nerve exam reveals face is symmetrical, tongue is midline, speech is clear. SKIN: No abrasions or ecchymosis is noted. No induration or masses noted. PSYCHIATRIC: Alert and oriented. Appears paranoid and anxious. Limitations: no limitations Course Vital Signs 04/10/22 04/10/22 14:51 19:59 Temperature 97.5 F L Pulse Rate 74 96 Respiratory 18 16 Rate Blood Pressure 106/62 108/67 O2 Sat by Pulse 98 99 Oximetry Medical Decision Making - Medical Decision Making The patient was seen and examined. Urine drug screen is negative. Breath alcohol test is completed. It is felt as though he is medically cleared for further psychiatric evaluation. Case is discussed with the psychiatric nurse who does evaluate him and they feel as though he would require admission to the psychiatric inpatient unit. They request patient received some Ativan. 2 mg of Ativan is ordered. No complications noted during ER course. Was pt. sent in by a medical professional or institution? @ -No Did you speak to anyone other than the patient for history? @ -Mother Did you review nursing and triage notes? @ -Yes, I agree Were old charts reviewed? @ -No Differential Diagnosis? @ -Acute psychosis, schizophrenia, drug abuse, bipolar disorder EKG interpreted by me (3pts min.)? @ -[none] X-rays interpreted by me (1pt min.)? @ -[none] CT interpreted by me (1pt min.)? @ -[none] U/S interpreted by me (1pt. min.)? @ -[none] What testing was considered but not performed? (CT, X-rays, U/S, labs)? Why? @ None What meds were considered but not given? Why? @ -None Did you discuss the management of the patient with other professionals? @ -Discussed with psychiatric nurse Did you reconcile home meds? @ -[none] Was smoking cessation discussed for >3mins.? @ -[none] Was critical care preformed (if so, how long)? @ -[none] Were there social determinants of health that impacted care today? How? (Homelessness, low income, unemployed, alcoholism, drug addiction, transportation, low edu. Level, literacy, decrease access to med. care, fdc, rehab)? @ -None Was there de-escalation of care discussed even if they declined? (Discuss DNR or withdrawal of care, Hospice)? @ -None What co-morbidities impacted this encounter? (DM, HTN, Smoking, COPD, CAD, Cancer, CVA, Hep., AIDS, mental health diagnosis, sleep apnea, morbid obesity)? @ -None Was patient admitted / discharged? @ -Admitted Undiagnosed new problem with uncertain prognosis? @ -Yes Drug Therapy requiring intensive monitoring for toxicity (Heparin, Nitro, Insulin, Cardizem)? @ -[none] Were any procedures done? @ -[none] Diagnosis/symptom? @ -See above Acute, or Chronic, or Acute on Chronic? @ -Acute Uncomplicated (without systemic symptoms) or Complicated (systemic symptoms)? @ -Uncomplicated Side effects of treatment? @ -[none] Exacerbation, Progression, or Severe Exacerbation] @ -Exacerbation Poses a threat to life or bodily function? @ -[no] - Lab Data Lab Results 04/10/22 Range/Units 16:09 Urine Opiates Screen Not Detected (NotDetected) Ur Oxycodone Screen Not Detected (NotDetected) Urine Methadone Screen Not Detected (NotDetected) Ur Propoxyphene Screen Not Detected (NotDetected) Ur Barbiturates Screen Not Detected (NotDetected) U Tricyclic Antidepress Not Detected (NotDetected) Ur Phencyclidine Scrn Not Detected (NotDetected) Ur Amphetamines Screen Not Detected (NotDetected) U Methamphetamines Scrn Not Detected (NotDetected) U Benzodiazepines Scrn Not Detected (NotDetected) Urine Cocaine Screen Not Detected (NotDetected) U Marijuana (THC) Screen Not Detected (NotDetected) Disposition Clinical Impression: Paranoia, Auditory hallucination, Anxiety Disposition: ADMITTED IP TO THIS HOSP Condition: Fair Is patient prescribed a controlled substance at d/c from ED?: No Time of Disposition: 20:10 Decision Date: 04/10/22 Decision Time: 20:10
[2022-04-10] MEDS ORDERED: ACETAMINOPHEN TAB 325 MG TAB PO PRN (23:58)
[2022-04-10] MEDS ORDERED: HALOPERIDOL LACTATE 5 MG/ML 1 ML VIAL IM PRN (23:58)
[2022-04-10] MEDS ORDERED: MAG HYDROX/AL HYDROX/SIMETH 30 ML CUP PO PRN (23:58)
[2022-04-10] MEDS ORDERED: MAGNESIUM HYDROXIDE 2,400 MG/10 ML CUP PO PRN (23:58)
[2022-04-11] MEDS ORDERED: LORazepam 2 MG/ML INJ IM PRN (00:01)
[2022-04-11] MEDS: LORazepam 1 MG TAB PO PRN ×2 (01:41→08:38)
[2022-04-11] MEDS: haloperidoL 5 MG TAB PO PRN (01:41)
[2022-04-11] MEDS: NICOTINE 14MG/24HR PATCH TRANSDERM SCH (08:38)
--- NOTE | 2022-04-11 11:51 | P.HP ---
Psychiatric H&P - . H&P Date: 04/11/22 History & Physical: Allergies Allergy/AdvReac Type Severity Reaction Status Date / Time No Known Allergies Allergy Verified 04/10/22 20:37 Vital Signs Temp 96.8 F L 04/11/22 01:53 Pulse 117 H 04/11/22 08:38 Resp 18 04/11/22 01:53 BP 146/64 04/11/22 08:38 Pulse Ox 98 04/11/22 01:53 FiO2 Intake & Output 04/10/22 04/11/22 04/11/22 18:59 06:59 18:59 Weight 74.843 kg Laboratory Last Values Urine Opiates Screen Not Detected (NotDetected) 04/10/22 16:09 Ur Oxycodone Screen Not Detected (NotDetected) 04/10/22 16:09 Urine Methadone Screen Not Detected (NotDetected) 04/10/22 16:09 Ur Propoxyphene Screen Not Detected (NotDetected) 04/10/22 16:09 Ur Barbiturates Screen Not Detected (NotDetected) 04/10/22 16:09 U Tricyclic Antidepress Not Detected (NotDetected) 04/10/22 16:09 Ur Phencyclidine Scrn Not Detected (NotDetected) 04/10/22 16:09 Ur Amphetamines Screen Not Detected (NotDetected) 04/10/22 16:09 U Methamphetamines Scrn Not Detected (NotDetected) 04/10/22 16:09 U Benzodiazepines Scrn Not Detected (NotDetected) 04/10/22 16:09 Urine Cocaine Screen Not Detected (NotDetected) 04/10/22 16:09 U Marijuana (THC) Screen Not Detected (NotDetected) 04/10/22 16:09 Coronavirus (PCR) Not Detected (Not Detectd) 04/10/22 19:49 04/11/22 11:40 IDENTIFYING DATA: Patient is a 27-year-old male, presenting to the hospital with paranoia HPI: Patient presented to the hospital [yesterday and according to ER report patient was apparently paranoid for several weeks. Patient was also endorsing paranoia that the neighbors were watching him, evil and wanting to kill him. Patient was admitted involuntarily to the mental health unit on a petition. According to the petition written by probation officer, "Christian is unable to tell if the people he things are dangerous and out to hurt him are real or fake". "Christian is very scared and was found at 6 AM trying to get into a random vehicles by pulling on the handles". "Mother is very concerned due to Christian saying people are chopped/cut up". Patient was admitted involuntarily to the mental health unit and attempted to be seen today by development writer. Patient appeared to have a constricted affect, was fairly lethargic and uncooperative with development writer. He initially agreed to speak with development writer in the office however was resistant to get out of bed. He states that "nothing's wrong" and turned away from development writer in the bed. He only answered some questions. He denied any depression at this time. He also denied things written on the petition. He appears to have very poor insight and judgment. He has poor hygiene and grooming. She was not able to speak about medications and does not believe that he needs to be in the hospital. Patient denies any suicidal or homicidal ideations intent or plan. At this time patient denies any auditory or visual hallucinations. Patient denied any recreational drug use. Patient's urine drug screen was negative. pt was uncooperative with most of the history and rest of the social history. PAST PSYCHIATRIC HISTORY: Patient has a history of one psychiatric hospitalization previously to the mental health unit in 2019 and was diagnosed with depression also be related to stimulant use. Patient denies being on any psychiatric medications. Patient denies any psychiatric outpatient follow-up. Past Medical History: No Reported History History of Any Multi-Drug Resistant Organisms: MRSA Date of last positivie culture/infection: 2011 MDRO Source:: right knee Past Surgical History: No Surgical Hx Reported Past Psychological History: ADD/ADHD Smoking Status: Current every day smoker Past Alcohol Use History: None Reported Past Drug Use History: None Reported ALLERGIES: as per EMR CHEMICAL DEPENDENCY HISTORY: as per HPI FAMILY PSYCHIATRIC/SUBSTANCE USE HISTORY: Unable to assess SOCIAL HISTORY: Unable to assess MENTAL STATUS EXAM: General Appearance: Patient appears to be disheveled in appearance, laying in bed stated age is lethargic, uncooperative and vague. Patient appears to have poor hygiene and grooming. Behavior: Patient is in bed, uncooperative. Speech: Patient's speech is fluent and nonpressured. [place]. Mood/Affect: Patient reports their mood is "okay", affect is congruent and constricted. Suicidality/Homicidality: Patient denies having any homicidal ideation intent or plan. Denies any suicidal ideations intent or plan Perceptions: Patient denies any visual hallucinations and denies any auditory hallucinations Though content/process: [place], evasive and guarded. Denying any paranoia. Memory and concentration: Unable to assess. Judgment and insight: poor STRENGTHS/WEAKNESSES: strength is that patient is resilient. Weakness is that patient has poor judgment and is impulsive INTELLECT: average IMPRESSIONS: Psychosis unspecified Nicotine dependence PLAN: -Patient is admitted under involuntary status to MHU for stabilization of psychiatric symptoms and safety. Patient has not signed adult voluntary form and medication consent and is placed in patient's chart. A second certification was completed and along with petition will be filed for court. -Medications : Will start patient on Abilify 5 mg daily for psychosis, trazodone 50 mg daily at bedtime when necessary for sleep. -Ativan and Haldol PRN for agitation/aggression -Patient was informed of the risks, benefits and side effects of the medication -Internal Medicine consult to perform medical evaluation and physical. -NRT - nicotine patch -SW on board for discharge planning. Encourage patient to participate in groups to work on coping skills. Will await deferral and court date. 04/11/22 11:50
[2022-04-11] MEDS ORDERED: traZODone HCL 50 MG TAB PO PRN (11:55)
[2022-04-11] MEDS: ARIPiprazole 5 MG TAB PO SCH (13:58)
[2022-04-12] MEDS: LORazepam 1 MG TAB PO PRN (06:15)
--- NOTE | 2022-04-12 08:03 | P.CONS ---
History of Present Illness - Reason for Consult Consult date: 04/11/22 Medical management - Chief Complaint Psychosis/paranoia - History of Present Illness The patient is a 27-year-old white male who is fairly well-known to my practice with known previous history of psychosis who is admitted secondary to paranoia. Drug screens were negative although he does take Adderall intermittently from my practice. No previous history of suicide or depression noted. He apparently has been living with his grandmother. Patient is now seen and appropriately admitted from mental health unit. Review of Systems Constitutional: Denies chills, Denies fever Ears, nose, mouth and throat: Denies headache, Denies sore throat Cardiovascular: Denies chest pain, Denies shortness of breath Respiratory: Denies cough Musculoskeletal: Denies myalgias Psychiatric: Reports as per HPI, Reports mood swings, Reports paranoia Past Medical History Past Medical History: No Reported History History of Any Multi-Drug Resistant Organisms: MRSA Year Discovered:: 2011 MDRO Source:: right knee Past Surgical History: No Surgical Hx Reported Past Psychological History: ADD/ADHD Smoking Status: Current every day smoker Past Alcohol Use History: None Reported Past Drug Use History: None Reported Medications and Allergies Home Medications Medication Instructions Recorded Confirmed Type Dextroamphetamine/Amphetamine 50 mg PO DAILY 04/10/22 04/10/22 History [Adderall Xr 25 mg Capsule] Allergies Allergy/AdvReac Type Severity Reaction Status Date / Time No Known Allergies Allergy Verified 04/10/22 20:37 Physical Exam Vitals: Vital Signs Temp Pulse Pulse Resp BP BP Pulse Ox 04/11/22 01:53 96.8 F L 101 H 18 128/93 98 04/10/22 19:59 96 16 108/67 99 04/10/22 14:51 97.5 F L 74 18 106/62 98 - Constitutional General appearance: no acute distress - EENT Eyes: EOMI - Neck Neck: no lymphadenopathy - Respiratory Respiratory: bilateral: CTA - Cardiovascular Rhythm: regular Heart sounds: normal: S1, S2 Abnormal Heart Sounds: no S3 Gallop - Gastrointestinal General gastrointestinal: soft, no tenderness - Psychiatric Psychiatric: no appropriate affect Assessment and Plan (1) Depression Current Visit: No Status: Acute Code(s): F32.9 - MAJOR DEPRESSIVE DISORDER, SINGLE EPISODE, UNSPECIFIED SNOMED Code(s): 18928845 (2) Suicidal ideation Current Visit: No Status: Acute Code(s): R45.851 - SUICIDAL IDEATIONS SNOMED Code(s): 6042936 (3) Paranoia Current Visit: Yes Status: Acute Code(s): F22 - DELUSIONAL DISORDERS SNOMED Code(s): 822269283 (4) Anxiety Current Visit: Yes Status: Acute Code(s): F41.9 - ANXIETY DISORDER, UNSPECIFIED SNOMED Code(s): 59856221 Plan: Continue to make she observation. Appropriate anxiety and stress leave given. Continue to follow. Withhold Adderall this time.
[2022-04-12] MEDS: ARIPiprazole 5 MG TAB PO SCH (08:33)
[2022-04-12] MEDS: NICOTINE 14MG/24HR PATCH TRANSDERM SCH (08:34)
--- NOTE | 2022-04-12 10:04 | P.PN ---
Progress Note - Text Progress Note Date: 04/12/22 Interval History: Patient was seen laying in bed and was directable and agreeable to speak with rfp writer. Patient appeared to continue to have very poor insight and judgment. He continues to state that he does not know why he is in the hospital. She was preoccupied with ending the conversation and states that "I want to rest". He was somewhat argumentative during the conversation. It did appear to be fairly lethargic claims that he just took an Ativan. He states that he was able to sleep last night. He is denying any depression or anxiety at this time. At this time patient denies any suicidal or homical ideations, intent or plan. Patient denies any auditory, visual hallucinations and denies any paranoia or delusions. Patient denies any side effects from the medications and has been compliant with meds. Mental Status Exam: General Appearance: Patient appears to be disheveled in appearance, laying in bed stated age is lethargic, uncooperative. Patient appears to have poor hygiene and grooming. Behavior: Patient is in bed, uncooperative. dismissive Speech: Patient's speech is fluent and nonpressured. [place]. Mood/Affect: Patient reports their mood is "fine", affect is congruent and constricted. Suicidality/Homicidality: Patient denies having any homicidal ideation intent or plan. Denies any suicidal ideations intent or plan Perceptions: Patient denies any visual hallucinations and denies any auditory hallucinations Though content/process: [place], evasive and guarded. Denying any paranoia. Memory and concentration: Unable to assess. Judgment and insight: poor IMPRESSIONS: Psychosis unspecified Nicotine dependence Plan: -Patient continues to meet criteria for inpatient psychiatric admission for symptom stabilization and safety. Patient has not signed adult voluntary form and medication consent and was placed in patient's chart. -Medications: increase Abilify 7.5 mg daily for psychosis, increase trazodone 100 mg daily at bedtime when necessary for sleep. -When necessary vistaril and Haldol for agitation/aggression. -NRT - nicotine patch -SW on board for discharge planning. Encouraged the patient to participate in milieu. awaiting deferral and court hearing date
[2022-04-12] MEDS: hydrOXYzine pamoate 25 MG CAP PO PRN (11:17)
[2022-04-12 12:21] LABS: Basophils # (A) 0.1 k/uL (0-0.2); Basophils % (A) 1 %; Eosinophils # (A) 0.2 k/uL (0-0.7); Eosinophils % (A) 3 %; HCT 45.7 % (39.0-53.0); HGB 15.6 gm/dL (13.0-17.5); Lymphocytes # (A) 2.2 k/uL (1.0-4.8); Lymphocytes % (A) 35 %; MCH 31.9 pg (25.0-35.0); MCHC 34.1 g/dL (31.0-37.0); MCV 93.4 fL (80.0-100.0); Mean Platelet Volume 8.7; Monocytes # (A) 0.4 k/uL (0-1.0); Monocytes % (A) 6 %; Neutrophils # (A) 3.3 k/uL (1.3-7.7); Neutrophils % (A) 52 %; Platelet Count 223 k/uL (150-450); RDW 12.9 % (11.5-15.5); WBC 6.3 k/uL (3.8-10.6)
[2022-04-12 12:40] LABS: ALT 21 U/L (4-49); AST 27 U/L (17-59); African American GFR (CKD) >90 (>60 ml/min/1.73 sqM); Alkaline Phosphatase 59 U/L (38-126); Anion Gap 6 mmol/L; Blood Urea Nitrogen 12 mg/dL (9-20); Calcium 8.9 mg/dL (8.4-10.2); Carbon Dioxide 29 mmol/L (22-30); Chloride 103 mmol/L (98-107); Glucose 97 mg/dL (74-99); Non-African American GFR(CKD) >90 (>60 ml/min/1.73 sqM); Potassium 4.4 mmol/L (3.5-5.1); Sodium 138 mmol/L (137-145); Total Bilirubin 0.4 mg/dL (0.2-1.3); Total Protein 6.5 g/dL (6.3-8.2)
[2022-04-12] MEDS: haloperidoL 5 MG TAB PO PRN (13:32)
[2022-04-12 19:24] LABS: Chol/HDL Ratio 5.08 Ratio; LDL Cholesterol,Calculated 91.1 mg/dL (0.0-131.0)
[2022-04-13] MEDS: hydrOXYzine pamoate 25 MG CAP PO PRN ×2 (08:27→16:00)
[2022-04-13] MEDS ORDERED: ARIPiprazole 10 MG TAB PO SCH (09:00)
[2022-04-13] MEDS: NICOTINE 14MG/24HR PATCH TRANSDERM SCH (09:10)
--- NOTE | 2022-04-13 13:30 | P.PN ---
Progress Note - Text Progress Note Date: 04/13/22 Interval History: Patient was seen laying in bed and was directable and agreeable to speak with creative services writer. Patient continues to appear to be disheveled in appearance and continues to endorse fairly poor insight and judgment, mild improvement. She claims at this time that he wants "do what I guarded due to get out of here". He claims that his mood is "a bit better". She was asking about the legal process. He continues to have fairly limited comprehension of the treatment plan and also his need for medications. He claims that he has not been going to many groups and continues isolated in his room. He claims that he has been showering however still appears to be disheveled. Claims that he was able to sleep fairly last night. At this time patient denies any suicidal or homical ideations, intent or plan. Patient denies any auditory, visual hallucinations and denies any paranoia or delusions. Patient denies any side effects from the medications and has been compliant with meds. Mental Status Exam: General Appearance: Patient appears to be disheveled in appearance, laying in bed stated age is less lethargic, mildly more cooperative. Patient appears to have poor hygiene and grooming. Behavior: Patient is in bed, midly more cooperative today.superifical Speech: Patient's speech is fluent and nonpressured. [place]. Mood/Affect: Patient reports their mood is "fine", affect is congruent and constricted. Suicidality/Homicidality: Patient denies having any homicidal ideation intent or plan. Denies any suicidal ideations intent or plan Perceptions: Patient denies any visual hallucinations and denies any auditory hallucinations Though content/process: [place], evasive and guarded, improving mildly. Denying any paranoia. Memory and concentration: alert and oriented X 3 Judgment and insight: poor IMPRESSIONS: Psychosis unspecified Nicotine dependence Plan: -Patient continues to meet criteria for inpatient psychiatric admission for symptom stabilization and safety. Patient has not signed adult voluntary form and medication consent and was placed in patient's chart. -Medications: increase Abilify 15 mg daily for psychosis for tomorrow, trazodone 100 mg daily at bedtime when necessary for sleep. -When necessary vistaril and Haldol for agitation/aggression. -NRT - nicotine patch -SW on board for discharge planning. Encouraged the patient to participate in milieu. awaiting deferral and court hearing date. patient will need to be transitioned onto S[facility]O due to patients very poor insight and judgment and high risk of non compliance.
[2022-04-13] MEDS: haloperidoL 5 MG TAB PO PRN (20:07)
[2022-04-13] MEDS: traZODone HCL 100 MG TAB PO PRN (20:07)
[2022-04-14] MEDS: hydrOXYzine pamoate 25 MG CAP PO PRN ×2 (05:37→18:17)
[2022-04-14] MEDS: haloperidoL 5 MG TAB PO PRN (05:37)
[2022-04-14] MEDS: ARIPiprazole 15 MG TAB PO SCH ×2 (09:28→16:24)
[2022-04-14] MEDS: NICOTINE 14MG/24HR PATCH TRANSDERM SCH (09:28)
--- NOTE | 2022-04-14 19:17 | P.PN ---
Subjective Progress Note Date: 04/14/22 Principal diagnosis: Progress note Apr 14, 2022 He was seen today in his room earlier but later he came out of his room and engaged freely in the office. He did not elaborate much on his drug use experience nor his psychotic process; His sealed off effect was overshowed by his resposne to abilify 15 mg . He was fully complaint with Rx and did not experience any EPS side effects. He was sleeping in his room earlier but was fully aroused and showed interest in his milieu inclduing socializing. He was on Trazodone qhs to normalize his sleep. He was not prepared to talk more about his Substnace us and whether he wunderstands the high risk for psychosis and even for schizophrenia. In the absnece of any collateral data. his clinical picture woudl fit with Substance indcued psychosis with the widespread use of cannabis conaining more potent THC and less CBD content. Diagnosis: Atypical psychosis, differetnial Substance induced Psychosis: MDMD, cannabis. combined. comorbid disorder : ADHD, depressive disorder NOS MSE: He was somewhat dishevelled in bed but later on he was dressed appropriately and took more active interest in his personal grooming. Self care has much improved. Speech. Coherent, poverty of content of speech. Affect: slightly blunted.and guarded but he denied any paranoid ideas of reference. Constricted range of affect He deneid any hallucinations or perceptual disturbance. No suicidal or homocidal ideaiton. His thought process; superficially logical no loosening of association. Cog; he was oriented , wtih improved insight into his condition. Managemetn Plan; he would continue to fulfil inpaitent admission criteria. 2. assess for negativ eand positive symptms 3 motivate pt to accept outpatient counselling for Subsstance use disorder 4. Monitor pt for side effect and consdier Abilify uon discharge x 1 month 5. Finalize discharge planning next week Objective - Vital Signs Vital signs: Vital Signs Temp 98.0 F 04/14/22 05:40 Pulse 107 H 04/14/22 05:40 Resp 16 04/14/22 05:40 BP 131/57 04/14/22 05:40 Pulse Ox 98 04/14/22 05:40 FiO2 - Labs CBC & Chem 7: 04/12/22 11:16 04/12/22 11:16
[2022-04-14] MEDS: traZODone HCL 100 MG TAB PO PRN (20:10)
[2022-04-15] MEDS: ARIPiprazole 15 MG TAB PO SCH (08:32)
[2022-04-15] MEDS: NICOTINE 14MG/24HR PATCH TRANSDERM SCH (08:33)
[2022-04-15] MEDS: traZODone HCL 100 MG TAB PO PRN (20:00)
--- NOTE | 2022-04-15 20:50 | P.PN ---
Subjective Progress Note Date: 04/15/22 Principal diagnosis: progress note He showed overall improvement with the Rx; He did not complain of 15 mg abilify and reported improved sleep on Trazdone as precribed. HE tolerated being seen in the office. HE was unaware of the nature of his psychssis and reluctant to talk furher whether substance use was a major factor; A; Self care has improved. fluent speech good eye contact. No halluciantions or delusions, ORiented improved insight and judgment Dignsosis Most likely Substance related (cannabis) Psychosis , Plan Follow [facility] at community [facility]. Engage with substance use team esssential . Social support to be reinforcedd proor to be discharged Objective - Vital Signs Vital signs: Vital Signs Temp 98 F 04/15/22 07:14 Pulse 109 H 04/15/22 07:14 Resp 16 04/15/22 07:14 BP 125/59 04/15/22 07:14 Pulse Ox 96 04/15/22 07:14 FiO2 - Labs CBC & Chem 7: 04/12/22 11:16 04/12/22 11:16
[2022-04-16] MEDS: hydrOXYzine pamoate 25 MG CAP PO PRN ×3 (01:15→17:23)
[2022-04-16] MEDS: ARIPiprazole 15 MG TAB PO SCH (08:49)
[2022-04-16] MEDS ORDERED: ARIPiprazole IM 400 MG VIAL (NO COST) PHARMACY STOCK IM ONE (09:00)
--- NOTE | 2022-04-16 14:54 | P.PN ---
Progress Note - Text Progress Note Date: 04/16/22 Interval History: Patient was seen laying in bed and was directable and agreeable to speak with screenplay writer. Patient appears to be more visible on the unit lately. He continues to not interact much with other people. He claims that he is doing "better" when asked about his weekend. He continues to have a mildly disheveled appearance however this is improving. Continues to have fairly poor and superficial insight and judgment. His judgment and insight have been mildly improving. He was not endorsing any delusions or paranoia. We spoke about medication options and patient was agreeable to be transitioned onto Abilify Maintenna long-acting injection. He states that he is not sleeping well at night time and wants his trazodone increased. He was also asking for Ativan. At this time patient denies any suicidal or homical ideations, intent or plan. Patient denies any auditory, visual hallucinations and denies any paranoia or delusions. Patient denies any side effects from the medications and has been compliant with meds. Mental Status Exam: General Appearance: Patient appears to be less disheveled in appearance, laying in bed stated age, more cooperative. Patient appears to have improving hygiene and grooming. Behavior: Patient is in bed, midly more cooperative today Speech: Patient's speech is fluent and nonpressured. Mood/Affect: Patient reports their mood is "better", affect is congruent and constricted. Suicidality/Homicidality: Patient denies having any homicidal ideation intent or plan. Denies any suicidal ideations intent or plan Perceptions: Patient denies any visual hallucinations and denies any auditory hallucinations Though content/process: [place], more logical today. Denying any paranoia. Memory and concentration: alert and oriented X 3 Judgment and insight: poor, improving mildly IMPRESSIONS: Psychosis unspecified Nicotine dependence Plan: -Patient continues to meet criteria for inpatient psychiatric admission for symptom stabilization and safety. Patient has not signed adult voluntary form and medication consent and was placed in patient's chart. -Medications: continue Abilify 15 mg daily for psychosis, will give ABilify Maintenna 400 mg IM tomorrow morning to ensure complaince. increase trazodone 150 mg daily at bedtime for sleep. -When necessary vistaril and Haldol for agitation/aggression. -NRT - nicotine patch -SW on board for discharge planning. Encouraged the patient to participate in milieu. patient deferred. patient will need to be transitioned onto S[facility]O due to patients very poor insight and judgment and high risk of non compliance. likely discharge saturday
[2022-04-16] MEDS: traZODone HCL 50 MG TAB PO SCH (20:16)
[2022-04-17] MEDS: hydrOXYzine pamoate 25 MG CAP PO PRN ×3 (02:41→18:30)
[2022-04-17] MEDS: ARIPiprazole 15 MG TAB PO SCH (08:41)
[2022-04-17] MEDS ORDERED: ARIPiprazole IM SYRINGE 400 MG (NO CHARGE) PHARMACY STOCK IM ONE (09:00)
--- NOTE | 2022-04-17 11:44 | P.PN ---
Progress Note - Text Progress Note Date: 04/17/22 Interval History: Patient was seen laying in bed and was directable and agreeable to speak with typewriter assembler. Patient appears to be more awake today. He states that he was up for breakfast earlier and took his medications. He also claimed that he receive the long-acting injection earlier today. He claims that he tolerated it fairly well. He claims that his mood is "alright" and denying any depression at this time. He is not endorsing any delusions or paranoia. He was fairly focused on discharge. He appears to be more cooperative and appropriate during conversation, not bizarre today. States that he is taking naps during the day as that is normal for him, states that he is sleeping fairly with the trazodone. At this time patient denies any suicidal or homical ideations, intent or plan. Patient denies any auditory, visual hallucinations and denies any paranoia or delusions. Patient denies any side effects from the medications and has been compliant with meds. Mental Status Exam: General Appearance: Patient appears to be less disheveled in appearance, laying in bed stated age, more cooperative. Patient appears to have improving hygiene and grooming. Behavior: Patient is in bed, midly more cooperative today Speech: Patient's speech is fluent and nonpressured. Mood/Affect: Patient reports their mood is "better", affect is congruent Suicidality/Homicidality: Patient denies having any homicidal ideation intent or plan. Denies any suicidal ideations intent or plan Perceptions: Patient denies any visual hallucinations and denies any auditory hallucinations Though content/process: [place], more logical today. Denying any paranoia. Memory and concentration: alert and oriented X 3 Judgment and insight: improving mildly IMPRESSIONS: Psychosis unspecified Nicotine dependence Plan: -Patient continues to meet criteria for inpatient psychiatric admission for symptom stabilization and safety. Patient has not signed adult voluntary form and medication consent and was placed in patient's chart. -Medications: continue Abilify 15 mg daily for psychosis, received ABilify Maintenna 400 mg IM today to ensure complaince, will be due for next dose on 05/15 and monthly thereafter. trazodone 150 mg daily at bedtime for sleep. -When necessary vistaril and Haldol for agitation/aggression. -NRT - nicotine patch -SW on board for discharge planning. Encouraged the patient to participate in milieu. patient deferred. patient received SANTIAGO due to patients very poor insight and judgment and high risk of non compliance. likely discharge tomorrow back home. SW to call mother and plan for dispo and ensure envt is safe.
[2022-04-17] MEDS: traZODone HCL 50 MG TAB PO SCH (20:12)
[2022-04-18] MEDS: hydrOXYzine pamoate 25 MG CAP PO PRN (05:12)
[2022-04-18 05:16] VITALS: BP 112/70; PULSE 111; RESP 16; TEMP 97.6
[2022-04-18] MEDS: ARIPiprazole 15 MG TAB PO SCH (08:34)
[2022-04-18] MEDS ORDERED: diphenhydrAMINE 25 MG CAP PO STA (09:37)
--- NOTE | 2022-04-18 09:46 | P.DS ---
Providers Date of admission: 04/10/22 23:30 Expected date of discharge: 04/18/22 Attending physician: Kailash Sadler MD Consults: 04/10/22 23:58 Consult Physician Routine Consulting Provider: Melo Maria Consult Reason/Comments: H&P and medical Do you want consulting provider notified?: Yes, Notify in am Primary care physician: Melo Maria - Discharge Diagnosis(es) (1) Unspecified psychosis Current Visit: Yes Status: Acute Priority: High (2) Nicotine dependence Current Visit: Yes Status: Acute Priority: Low Hospital Course: Admission HPI: Admission note was completed by ticket writer "Patient is a 27-year-old male, presenting to the hospital with paranoia. Patient presented to the hospital [yesterday and according to ER report patient was apparently paranoid for several weeks. Patient was also endorsing paranoia that the neighbors were watching him, evil and wanting to kill him. Patient was admitted involuntarily to the mental health unit on a petition. According to the petition written by police department secretary, "Christian is unable to tell if the people he things are dangerous and out to hurt him are real or fake". "Christian is very scared and was found at 6 AM trying to get into a random vehicles by pulling on the handles". "Mother is very concerned due to Christian saying people are chopped/cut up". Patient was admitted involuntarily to the mental health unit and attempted to be seen today by ticket writer. Patient appeared to have a constricted affect, was fairly lethargic and uncooperative with ticket writer. He initially agreed to speak with ticket writer in the office however was resistant to get out of bed. He states that "nothing's wrong" and turned away from ticket writer in the bed. He only answered some questions. He denied any depression at this time. He also denied things written on the petition. He appears to have very poor insight and judgment. He has poor hygiene and grooming. She was not able to speak about medications and does not believe that he needs to be in the hospital. Patient denies any suicidal or homicidal ideations intent or plan. At this time patient denies any auditory or visual hallucinations. Patient denied any recreational drug use. Patient's urine drug screen was negative. pt was uncooperative with most of the history and rest of the social history." Hospital course: Upon admission to the unit patient was admitted involuntarily on a petition and certificate and a second certificate was completed and faxed with the courts. Patient ended up signing a deferral with the cook vacuum kettle and agreeing to treatment. Patient was mainly isolative in his room however with treatment and time patient eventually got along well with other patients on the unit and followed unit protocol. Patient was compliant with the medications and denied any side effects throughout hospital course. Patient was started on Abilify by mouth and increased to a dose of 15 mg daily for psychosis, patient was transitioned onto Abilify Maintenna 400 mg IM given on 04/17 and next dose to be given on 05/15 in 1 month. Patient was also started on trazodone and increased the dose of 150 mg daily at bedtime for sleep. Vistaril as needed for anxiety. Patient spoke of his stressors and engaged in therapy both group and individual. Patient was also seen by medical team for history and physical exam. Throughout the course of the hospitalization patient gradually improved with regards to mood, anxiety, sleep and returned back to their baseline level of functioning. On the day of discharge patient denied any suicidal or homicidal ideations intent or plan denied any auditory or visual hallucinations. Patient endorsed wanting to live for his health and family. The patient denied any access to guns or weapons. Patient denied any paranoia and did not endorse any delusions. Patient does not have a significant history of substance abuse was counseled on abstaining from all substances including alcohol and marijuana. Patient was also counseled on the medications and need for regular compliance and was encouraged to follow-up with their outpatient appointment for mental health and also for primary care. Prior to discharge a family meeting will be arranged by clinical social worker to answer any questions and ensure safety upon discharge. Mental status exam: General Appearance: Patient appears to be stated age is alert, pleasant, and cooperative. Patient is in no acute distress and has improved hygiene and grooming Behavior: Patient is calmly seated without any agitated behavior. Speech: Patient's speech is fluent and nonpressured. Mood/Affect: Patient reports their mood is "good", affect is congruent Suicidality/Homicidality: Patient denies having any suicidal or homicidal ideation intent or plan. Perceptions: Patient denies any auditory or visual hallucinations. Though content/process: There is no evidence of any delusional thought content and thought process is linear and goal-directed. Memory and concentration: AOX3, grossly intact for the purposes of this session. Can spell "WORLD" backwards correctly. Judgment and insight: chronically poor/limited, however has improved with guarded prognosis Impression: Unspecified psychosis Nicotine dependence Plan: -Continue with discharge today as patient has improved and stabilized psychiatrically and is not currently an imminent threat to himself and/or others. Patient will remain at chronically elevated risk for harm to self and/or others due to his impulsivity and chronically poor/limited insight and judgment. -Continue medications: Trazodone 150 mg daily at bedtime for insomnia/mood, Abilify by mouth 15 mg daily for psychosis for 14 more days then discontinue. Patient was given Abilify Maintenna 400 mg IM on 04/18 and will be due for next dose in one month on 05/15. -Patient was counseled on the need for medication compliance and appropriate follow-up at mental health and also primary care for medical issues. Patient verbalized understanding and agreed. -Social work to arrange for and conduct family meeting to ensure safety upon discharge and answer any questions/concerns. Social work also to arrange for patients follow up appointments with [facility] for psychiatric care along with follow up with primary care provider. -Patient counseled on abstaining from recreational drugs and marijuana and alcohol. Was informed/educated on the adverse effects on their physical and mental health. Patient verbally agreed and understood. -Patient was instructed to return to the hospital or seek immediate medical care if their psychiatric or medical symptoms do worsen or reoccur. Allergies Allergy/AdvReac Type Severity Reaction Status Date / Time haloperidol [From Haldol] AdvReac Swelling Verified 04/16/22 02:48 Laboratory Results WBC 6.3 k/uL (3.8-10.6) 04/12/22 11:16 RBC 4.90 m/uL (4.30-5.90) 04/12/22 11:16 Hgb 15.6 gm/dL (13.0-17.5) 04/12/22 11:16 Hct 45.7 % (39.0-53.0) 04/12/22 11:16 MCV 93.4 fL (80.0-100.0) 04/12/22 11:16 MCH 31.9 pg (25.0-35.0) 04/12/22 11:16 MCHC 34.1 g/dL (31.0-37.0) 04/12/22 11:16 RDW 12.9 % (11.5-15.5) 04/12/22 11:16 Plt Count 223 k/uL (150-450) 04/12/22 11:16 MPV 8.7 04/12/22 11:16 Neutrophils % 52 % 04/12/22 11:16 Lymphocytes % 35 % 04/12/22 11:16 Monocytes % 6 % 04/12/22 11:16 Eosinophils % 3 % 04/12/22 11:16 Basophils % 1 % 04/12/22 11:16 Neutrophils # 3.3 k/uL (1.3-7.7) 04/12/22 11:16 Lymphocytes # 2.2 k/uL (1.0-4.8) 04/12/22 11:16 Monocytes # 0.4 k/uL (0-1.0) 04/12/22 11:16 Eosinophils # 0.2 k/uL (0-0.7) 04/12/22 11:16 Basophils # 0.1 k/uL (0-0.2) 04/12/22 11:16 Sodium 138 mmol/L (137-145) 04/12/22 11:16 Potassium 4.4 mmol/L (3.5-5.1) 04/12/22 11:16 Chloride 103 mmol/L (98-107) 04/12/22 11:16 Carbon Dioxide 29 mmol/L (22-30) 04/12/22 11:16 Anion Gap 6 mmol/L 04/12/22 11:16 BUN 12 mg/dL (9-20) 04/12/22 11:16 Creatinine 0.84 mg/dL (0.66-1.25) 04/12/22 11:16 Est GFR (CKD-EPI)AfAm >90 (>60 ml/min/1.73 sqM) 04/12/22 11:16 Est GFR (CKD-EPI)NonAf >90 (>60 ml/min/1.73 sqM) 04/12/22 11:16 Glucose 97 mg/dL (74-99) 04/12/22 11:[address] Glu mg/dL 106 04/12/22 11:16 Hemoglobin A1c 5.3 % (0.0-6.0) 04/12/22 11:16 Calcium 8.9 mg/dL (8.4-10.2) 04/12/22 11:16 Total Bilirubin 0.4 mg/dL (0.2-1.3) 04/12/22 11:16 AST 27 U/L (17-59) 04/12/22 11:16 ALT 21 U/L (4-49) 04/12/22 11:16 Alkaline Phosphatase 59 U/L (38-126) 04/12/22 11:16 Total Protein 6.5 g/dL (6.3-8.2) 04/12/22 11:16 Albumin 4.0 g/dL (3.5-5.0) 04/12/22 11:16 Triglycerides 207.00 mg/dL (0.00-149.00) H 04/12/22 11:16 Cholesterol 165.00 mg/dL (0.00-200.00) 04/12/22 11:16 LDL Cholesterol, Calc 91.1 mg/dL (0.0-131.0) 04/12/22 11:16 VLDL Cholesterol, Calc 41.40 mg/dL (5.00-40.00) H 04/12/22 11:16 HDL Cholesterol 32.50 mg/dL (40.00-60.00) L 04/12/22 11:16 Cholesterol/HDL Ratio 5.08 Ratio 04/12/22 11:16 TSH 0.557 mIU/L (0.465-4.680) 04/12/22 11:16 Urine Opiates Screen Not Detected (NotDetected) 04/10/22 16:09 Ur Oxycodone Screen Not Detected (NotDetected) 04/10/22 16:09 Urine Methadone Screen Not Detected (NotDetected) 04/10/22 16:09 Ur Propoxyphene Screen Not Detected (NotDetected) 04/10/22 16:09 Ur Barbiturates Screen Not Detected (NotDetected) 04/10/22 16:09 U Tricyclic Antidepress Not Detected (NotDetected) 04/10/22 16:09 Ur Phencyclidine Scrn Not Detected (NotDetected) 04/10/22 16:09 Ur Amphetamines Screen Not Detected (NotDetected) 04/10/22 16:09 U Methamphetamines Scrn Not Detected (NotDetected) 04/10/22 16:09 U Benzodiazepines Scrn Not Detected (NotDetected) 04/10/22 16:09 Urine Cocaine Screen Not Detected (NotDetected) 04/10/22 16:09 U Marijuana (THC) Screen Not Detected (NotDetected) 04/10/22 16:09 Coronavirus (PCR) Not Detected (Not Detectd) 04/10/22 19:49 Vital Signs Temp 97.6 F 04/18/22 05:14 Pulse 111 H 04/18/22 05:14 Resp 16 04/18/22 05:14 BP 112/70 04/18/22 05:14 Pulse Ox 98 04/18/22 05:14 FiO2 Patient Condition at Discharge: Stable Plan - Discharge Summary Discharge Rx Participant: No New Discharge Prescriptions: New Nicotine Gum (Polacrilex) [Nicorette] 2 mg BUCCAL Q6H PRN 28 Days #112 PRN Reason: Nicotine Cravings traZODone HCL 150 mg PO HS 30 Days #30 tablet hydrOXYzine pamoate [Vistaril] 50 mg PO DAILY PRN 30 Days #60 cap PRN Reason: Anxiety ARIPiprazole [Abilify] 15 mg PO DAILY 14 Days #14 tab ARIPiprazole IM [Abilify Maintena] 400 mg IM QMONTHLY #1 each diphenhydrAMINE HCL [Benadryl] 25 mg PO HS PRN 14 Days #14 tab PRN Reason: Insomnia Discontinued Dextroamphetamine/Amphetamine [Adderall Xr 25 mg Capsule] 50 mg PO DAILY Discharge Medication List ARIPiprazole IM [Abilify Maintena] 400 mg IM QMONTHLY #1 each 04/18/22 [Rx] ARIPiprazole [Abilify] 15 mg PO DAILY 14 Days #14 tab 04/18/22 [Rx] Nicotine Gum (Polacrilex) [Nicorette] 2 mg BUCCAL Q6H PRN 28 Days #112 04/18/22 [Rx] diphenhydrAMINE HCL [Benadryl] 25 mg PO HS PRN 14 Days #14 tab 04/18/22 [Rx] hydrOXYzine pamoate [Vistaril] 50 mg PO DAILY PRN 30 Days #60 cap 04/18/22 [Rx] traZODone HCL 150 mg PO HS 30 Days #30 tablet 04/18/22 [Rx] Activity/Diet/Wound Care/Special Instructions: Avoid the use of street drugs and alcohol. Take all prescriptions as prescribed. When you are in need of refills on your medications, please contact your medical provider and/or outpatient psychiatrist to have this done. Please go to scheduled outpatient appointment for aftercare treatment. If symptoms return or become worse, call the crisis line at and/or go to the nearest emergency room for evaluation Discharge Disposition: HOME SELF-CARE
== END 2022-04-18 12:47 | disposition home or self-care (01) | DRG 885 ==
LOC: EC 14:48 → 3MHU 23:30
PROVIDERS: ADMIT Psychiatry & Neurology Psychiatry; ATTEND Psychiatry & Neurology Psychiatry
DX: F29 Unspecified psychosis not due to a substance or known physiological condition (principal); R45.851 Suicidal ideations; Z20.822 Contact with and (suspected) exposure to COVID-19; F41.9 Anxiety disorder, unspecified; F90.9 Attention-deficit hyperactivity disorder, unspecified type; G47.00 Insomnia, unspecified; F17.210 Nicotine dependence, cigarettes, uncomplicated; Z71.6 Tobacco abuse counseling; Z79.899 Other long term (current) drug therapy; Z86.14 Personal history of Methicillin resistant Staphylococcus aureus infection
CPT/HCPCS: 80053; 80061; 80306; 82075; 83036; 84443; 85025; 87635; 99285

== ENCOUNTER 2022-04-23 11:28 | Emergency (ER) | payer BC, MEDICAID ==
[2022-04-23 11:33] VITALS: TEMP 98.5
[2022-04-23] MEDS ORDERED: LORazepam 2 MG/ML INJ IV STA (12:11)
--- NOTE | 2022-04-23 12:14 | ED ---
General Adult HPI - General Chief complaint: Recheck/Abnormal Lab/Rx Stated complaint: med recheck/reaction Time Seen by Provider: 04/23/22 11:55 Source: patient, RN notes reviewed Mode of arrival: ambulatory Limitations: no limitations - History of Present Illness Initial comments: 27 year old male presents to the emergency department with a chief complaint of medication problem. He reports he was started on Abilify, trazadone, hydroxizine, and benadryl on 04/12. He recieved an injection of Abilify and reports symptoms of worsening anxiety, agitation, drooling, tremors. She denies any suicidal or homicidal ideation. He denies any visual or auditory hallucinations. He reports that he has been follow-up appointment with an outpatient psychiatrist on 04/27. - Related Data Previous Rx's Medication Instructions Recorded ARIPiprazole IM [Abilify Maintena] 400 mg IM QMONTHLY #1 each 04/18/22 ARIPiprazole [Abilify] 15 mg PO DAILY 14 Days #14 tab 04/18/22 Nicotine Gum (Polacrilex) 2 mg BUCCAL Q6H PRN 28 Days #112 04/18/22 [Nicorette] diphenhydrAMINE HCL [Benadryl] 25 mg PO HS PRN 14 Days #14 tab 04/18/22 hydrOXYzine pamoate [Vistaril] 50 mg PO DAILY PRN 30 Days #60 cap 04/18/22 traZODone HCL 150 mg PO HS 30 Days #30 tablet 04/18/22 Benztropine Mesylate [Cogentin] 0.5 mg PO BID 10 Days #20 tablet 04/23/22 Allergies Allergy/AdvReac Type Severity Reaction Status Date / Time haloperidol [From Haldol] AdvReac Swelling Verified 04/23/22 13:58 Review of Systems ROS Statement: Those systems with pertinent positive or pertinent negative responses have been documented in the HPI. ROS Other: All systems not noted in ROS Statement are negative. Past Medical History Past Medical History: No Reported History History of Any Multi-Drug Resistant Organisms: MRSA Date of last positivie culture/infection: 2011 MDRO Source:: right knee Past Surgical History: No Surgical Hx Reported Past Psychological History: ADD/ADHD, Anxiety Smoking Status: Current every day smoker Past Alcohol Use History: None Reported Past Drug Use History: None Reported General Exam Limitations: no limitations General appearance: alert, in no apparent distress, anxious Head exam: Present: atraumatic, normocephalic, normal inspection Eye exam: Present: normal appearance, PERRL, EOMI. Absent: scleral icterus, conjunctival injection, periorbital swelling ENT exam: Present: normal exam, normal oropharynx, mucous membranes moist Neck exam: Present: normal inspection. Absent: tenderness, meningismus, lymphadenopathy Respiratory exam: Present: normal lung sounds bilaterally. Absent: respiratory distress, wheezes, rales, rhonchi, stridor Cardiovascular Exam: Present: regular rate, normal rhythm, tachycardia, normal heart sounds. Absent: systolic murmur, diastolic murmur, rubs, gallop, clicks GI/Abdominal exam: Present: soft, normal bowel sounds. Absent: distended, tenderness, guarding, rebound, rigid Extremities exam: Present: normal inspection, full ROM, normal capillary refill. Absent: tenderness, pedal edema, joint swelling, calf tenderness Back exam: Present: normal inspection Neurological exam: Present: alert, oriented X3, CN II-XII intact Psychiatric exam: Present: normal affect, normal mood Skin exam: Present: warm, dry, intact, normal color. Absent: rash Course Vital Signs 04/23/22 04/23/22 11:30 15:30 Temperature 98.5 F Pulse Rate 116 H 115 H Respiratory 20 16 Rate Blood Pressure 140/81 120/87 O2 Sat by Pulse 99 100 Oximetry - Reevaluation(s) Reevaluation #1: 04/23/22 14:04 Case discussed with NIKKIE Toussaint and who recommends adding congentin 1mg here and to take .5mg of Cogentin BID until thursday 04/27 Medical Decision Making - Medical Decision Making Was pt. sent in by a medical professional or institution (, PA, [employer]ES[employer] DRIER OPERATOR, urgent care, hospital, or penitentiary...) When possible be specific @ -[No] Did you speak to anyone other than the patient for history (EMS, parent, family, police, friend...)? What history was obtained from this source @ -[No] Did you review nursing and triage notes (agree or disagree)? Why? @ -[I reviewed and agree with nursing and triage notes] Were old charts reviewed (outside hosp., previous admission, EMS record, old EKG, old radiological studies, urgent care reports/EKG's, penitentiary records)? Report findings @ -[No old charts were reviewed] Differential Diagnosis (chest pain, altered mental status, abdominal pain women, abdominal pain men, vaginal bleeding, weakness, fever, dyspnea, syncope, headache, dizziness, GI bleed, back pain, seizure, CVA, palpatations, mental health)? @ -[not applicable] EKG interpreted by me (3pts min.). @ -[As above] X-rays interpreted by me (1pt min.). @ -[None done] CT interpreted by me (1pt min.). @ -[None done] U/S interpreted by me (1pt. min.). @ -[None done] What testing was considered but not performed or refused? (CT, X-rays, U/S, labs)? Why? @ -[None] What meds were considered but not given or refused? Why? @ -[None] Did you discuss the management of the patient with other professionals (professionals i.e. , PA, [employer] D[employer]ER OPERATOR, lab, RT, psych nurse, social media analyst, melt house drag operator, teacher, asset protection officer, disease case manager rn)? Give summary @ -[No] Was smoking cessation discussed for >3mins.? @ -[No] Was critical care preformed (if so, how long)? @ -[No] Were there social determinants of health that impacted care today? How? (Homelessness, low income, unemployed, alcoholism, drug addiction, transportation, low edu. Level, literacy, decrease access to med. care, halfway, rehab)? @ -[No] Was there de-escalation of care discussed even if they declined (Discuss DNR or withdrawal of care, Hospice)? DNR status @ -[No] What co-morbidities impacted this encounter? (DM, HTN, Smoking, COPD, CAD, Cancer, CVA, ARF, Chemo, Hep., AIDS, mental health diagnosis, sleep apnea, morbid obesity)? @ -[None] Was patient admitted / discharged? Hospital course, mention meds given and route, prescriptions, significant lab abnormalities, going to OR and other pertinent info. @ 27 -year-old male presents to the emergency department with a chief complaint of medication RXN. He had history and physical performed. Physical exam is essentially unremarkable heart rate regular rate and rhythm lung sounds clear to auscultation bilaterally. Patient was given ativan with symptomatic relief in the emergency department. I discussed the case with elvis RN with emergency psychiatric services who recommends the patient be given 1 g of Cogentin while on the emergency department he was given a prescription for Cogentin to be taken twice a day daily until he can be seen by his psychiatrist. On Thursday 04/27. I recommend close follow-up with her Psychiatrist within 1-2 days. Patient was discharged in stable condition, and all return precautions were discussed. Patient verbalized understanding. I discussed the case with SHAZIA Auguste who agrees with plan of care. Undiagnosed new problem with uncertain prognosis? @ -[No] Drug Therapy requiring intensive monitoring for toxicity (Heparin, Nitro, Insulin, Cardizem)? @ -[No] Were any procedures done? @ -[No] Diagnosis/symptom? @ -Medication RXN Acute, or Chronic, or Acute on Chronic? @ -acute Uncomplicated (without systemic symptoms) or Complicated (systemic symptoms)? @ -uncomplicated Side effects of treatment? @ -[No] Exacerbation, Progression, or Severe Exacerbation? @ -[No] Poses a threat to life or bodily function? How? (Chest pain, [place], [place], pneumonia, PE, COPD, DKA, ARF, appy, cholecystitis, CVA, Diverticulitis, Homicidal, Suicidal, threat to staff... and all critical care pts) @ -[No] - Lab Data Result diagrams: 04/23/22 12:04/23/22 12: Lab Results 04/23/22 04/23/22 04/23/22 Range/Units 12: 12: 13:07 WBC 7.9 (3.8-10.6) k/uL RBC 5.46 (4.30-5.90) m/uL Hgb 17.1 (13.0-17.5) gm/dL Hct 50.2 (39.0-53.0) % MCV 91.8 (80.0-100.0) fL MCH 31.3 (25.0-35.0) pg MCHC 34.1 (31.0-37.0) g/dL RDW 13.0 (11.5-15.5) % Plt Count 214 (150-450) k/uL MPV 8.8 Neutrophils % 63 % Lymphocytes % 27 % Monocytes % 6 % Eosinophils % 2 % Basophils % 1 % Neutrophils # 5.0 (1.3-7.7) k/uL Lymphocytes # 2.1 (1.0-4.8) k/uL Monocytes # 0.4 (0-1.0) k/uL Eosinophils # 0.1 (0-0.7) k/uL Basophils # 0.0 (0-0.2) k/uL Sodium 140 (137-145) mmol/L Potassium 4.6 (3.5-5.1) mmol/L Chloride 101 (98-107) mmol/L Carbon Dioxide 31 H (22-30) mmol/L Anion Gap 8 mmol/L BUN 16 (9-20) mg/dL Creatinine 0.94 (0.66-1.25) mg/dL Est GFR (CKD-EPI)AfAm >90 (>60 ml/min/1.73 sqM) Est GFR (CKD-EPI)NonAf >90 (>60 ml/min/1.73 sqM) Glucose 98 (74-99) mg/dL Calcium 9.3 (8.4-10.2) mg/dL Total Bilirubin 0.3 (0.2-1.3) mg/dL AST 23 (17-59) U/L ALT 26 (4-49) U/L Alkaline Phosphatase 85 (38-126) U/L Total Protein 7.9 (6.3-8.2) g/dL Albumin 4.8 (3.5-5.0) g/dL Urine Opiates Screen Not Detected (NotDetected) Ur Oxycodone Screen Not Detected (NotDetected) Urine Methadone Screen Not Detected (NotDetected) Ur Propoxyphene Screen Not Detected (NotDetected) Ur Barbiturates Screen Not Detected (NotDetected) U Tricyclic Antidepress Not Detected (NotDetected) Ur Phencyclidine Scrn Not Detected (NotDetected) Ur Amphetamines Screen Not Detected (NotDetected) U Methamphetamines Scrn Not Detected (NotDetected) U Benzodiazepines Scrn Not Detected (NotDetected) Urine Cocaine Screen Not Detected (NotDetected) U Marijuana (THC) Screen Not Detected (NotDetected) Disposition Clinical Impression: Anxiety, Medication reaction Disposition: HOME SELF-CARE Condition: Stable Instructions (If sedation given, give patient instructions): Brief Psychotic Disorder (ED) Additional Instructions: Return to the nearest emergency department if symptoms worsen or persist. Is patient prescribed a controlled substance at d/c from ED?: No Referrals: Melo Maria MD [Primary Care Provider] - 1-2 days Time of Disposition: 14:54
[2022-04-23 12:56] LABS: Potassium 4.6 mmol/L (3.5-5.1)
[2022-04-23 12:57] LABS: ALT 26 U/L (4-49); AST 23 U/L (17-59); African American GFR (CKD) >90 (>60 ml/min/1.73 sqM); Albumin 4.8 g/dL (3.5-5.0); Alkaline Phosphatase 85 U/L (38-126); Anion Gap 8 mmol/L; Blood Urea Nitrogen 16 mg/dL (9-20); Calcium 9.3 mg/dL (8.4-10.2); Carbon Dioxide 31 mmol/L (22-30); Chloride 101 mmol/L (98-107); Glucose 98 mg/dL (74-99); Non-African American GFR(CKD) >90 (>60 ml/min/1.73 sqM); Sodium 140 mmol/L (137-145); Total Bilirubin 0.3 mg/dL (0.2-1.3); Total Protein 7.9 g/dL (6.3-8.2)
[2022-04-23 13:00] LABS: Basophils % (A) 1 %; Eosinophils # (A) 0.1 k/uL (0-0.7); Eosinophils % (A) 2 %; HCT 50.2 % (39.0-53.0); HGB 17.1 gm/dL (13.0-17.5); Lymphocytes # (A) 2.1 k/uL (1.0-4.8); Lymphocytes % (A) 27 %; MCH 31.3 pg (25.0-35.0); MCHC 34.1 g/dL (31.0-37.0); MCV 91.8 fL (80.0-100.0); Mean Platelet Volume 8.8; Monocytes # (A) 0.4 k/uL (0-1.0); Monocytes % (A) 6 %; Neutrophils % (A) 63 %; Platelet Count 214 k/uL (150-450); RBC 5.46 m/uL (4.30-5.90); WBC 7.9 k/uL (3.8-10.6)
[2022-04-23] MEDS ORDERED: BENZTROPINE MESYLATE 1 MG TAB PO SCH (14:15)
[2022-04-23 14:16] LABS: Amphetamine Screen,Urine Not Detected (NotDetected); Cocaine Screen,Urine Not Detected (NotDetected); Opiate Screen,Urine Not Detected (NotDetected); Phencyclidine Screen,Urine Not Detected (NotDetected); Urn Cannabinoid Scrn Not Detected (NotDetected)
[2022-04-23 14:17] LABS: Barbiturate Screen,Urine Not Detected (NotDetected); Benzodiazepines Screen,Urine Not Detected (NotDetected); Methadone Screen, Urine Not Detected (NotDetected); Oxycodone Screen, Urine Not Detected (NotDetected); Tricyclic Antidepressant,Urine Not Detected (NotDetected)
[2022-04-23 15:31] VITALS: BP 120/87; PULSE 115; RESP 16
== END 2022-04-23 15:31 | disposition home or self-care (01) ==
LOC: EC 11:28
DX: T88.7XXA Unspecified adverse effect of drug or medicament, initial encounter (principal); Z88.8 Allergy status to other drugs, medicaments and biological substances
CPT/HCPCS: 36415; 80053; 85025; 80306; 99283; 96374; J2060